=== PATIENT | male | born 1945 | race African-American/Black ===

== ENCOUNTER 2018-08-24 10:02 | Inpatient (IN) ==
--- NOTE | 2018-08-24 10:52 | XR ---
EXAM DATE: 08/24/2018 10:48 AM EST AGE/SEX: 73 years / Male INDICATIONS: Patient presents with weakness and shortness of breath. CLINICAL DATA: This is the patient's initial encounter. Patient reports that signs and symptoms have been present for 3 days and indicates a pain score of 3/10. MEDICAL/SURGICAL HISTORY: . Hypertension. Hypothyroidism. Benign prostatic hyperplasia, (BPH) Diabetes. Hyperlipidemia. Pneumonia. . COMPARISON: [facility], CHEST SINGLE AP, 07/29/2015. . FINDINGS: A single AP view of the chest demonstrates the lungs to be symmetrically aerated without evidence of mass, infiltrate or effusion. Mild elevation left hemidiaphragm. The cardiomediastinal contours are unremarkable. Osseous structures are intact. CONCLUSION: No focal or acute pulmonary infiltrates. No significant changes compared to the prior study. Electronically signed by: Real Mccallum MD 08/24/2018 10:51 AM EST
[2018-08-24 11:00] LABS: Baso % (Auto) 0.4 % (0.0-2.0); Eos # (Auto) 0.1 th/mm3 (0.0-0.4); Eos % (Auto) 2.7 % (0.0-4.0); Hematocrit 46.3 % (39.0-51.0); Lymph # (Auto) 1.5 th/mm3 (1.0-4.8); Lymph % (Auto) 33.9 % (9.0-44.0); Mean Corpuscular HGB Conc 32.3 % (32.0-36.0); Mean Corpuscular Hemoglobin 27.3 pg (27.0-34.0); Mean Corpuscular Volume 84.6 fL (80.0-100.0); Mean Platelet Volume 7.4 fL (7.0-11.0); Mono # (Auto) 0.5 th/mm3 (0.0-0.9); Mono % (Auto) 11.1 % (0.0-8.0); Neut # (Auto) 2.4 th/mm3 (1.8-7.7); Neut % (Auto) 51.9 % (16.0-70.0); Platelet Count 181 th/mm3 (150-450); Red Blood Count 5.48 mil/mm3 (4.50-5.90); Red Cell Distribution Width 17.3 % (11.6-17.2); White Blood Count 4.6 th/mm3 (4.0-11.0)
[2018-08-24 11:01] LABS: Bilirubin,Urine Negative (Negative); Clarity,Urine Clear (Clear); Color,Urine Yellow (Yellw/Straw); Glucose,Urine (UA) Negative (Negative); Leukocyte Esterase,Urine Negative (Negative); Mucus,Urine Few /lpf (Occasional); Nitrite,Urine Negative (Negative); Specific Gravity,Urine 1.009 (1.002-1.035)
[2018-08-24 11:19] LABS: Albumin 3.5 g/dL (3.4-5.0); Anion Gap 5 meq/L (5-15); Aspartate Aminotransferase 24 U/L (15-37); Blood Urea Nitrogen 15 mg/dL (7-18); Calcium 8.7 mg/dL (8.5-10.1); Carbon Dioxide 33.2 meq/L (21.0-32.0); Chloride 101 meq/L (98-107); Glomerular Filtration Rate 51 mL/min (>89); Glucose,Random 110 mg/dL (74-106); Potassium 3.4 meq/L (3.5-5.1); Sodium 139 meq/L (136-145)
[2018-08-24 11:20] LABS: Alanine Aminotransferase 42 U/L (12-78)
[2018-08-24 11:23] LABS: Alkaline Phosphatase 41 U/L (45-117); Total Protein 7.6 g/dL (6.4-8.2)
--- NOTE | 2018-08-24 11:28 | ED ---
HPI General Chief Complaint: Dizziness Stated Complaint: weakness Time Seen by Provider: 08/24/18 10:27 Source: patient Mode of arrival: ambulatory Limitations: no limitations History of Present Illness MD complaint: Reports dizziness Onset (ago): day(s) (1. He states that his symptoms were mild yesterday. They are acutely worse today.) Timing: gradual onset Description: Reports lightheadedness History of similar episodes: No History of trauma: No Severity: mild Relieving factors: nothing Exacerbating factors: other (Standing) Associated symptoms: Reports denies other symptoms; Denies chest pain, fever, chills and shortness of breath Related Data Home Medications Medication Instructions Recorded Confirmed amlodipine 10 mg PO DAILY 08/24/18 08/24/18 atorvastatin 20 mg PO DAILY 08/24/18 08/24/18 calcium carbonate-vit D3-min 1 tab PO DAILY 08/24/18 08/24/18 [Calcium 600 + Minerals] clonidine HCl 0.05 mg PO QID 08/24/18 08/24/18 glipizide 2.5 mg PO DAILY 08/24/18 08/24/18 levothyroxine 150 mcg PO DAILY 08/24/18 08/24/18 losartan 100 mg PO DAILY 08/24/18 08/24/18 metoprolol tartrate 100 mg PO BID 08/24/18 08/24/18 multivitamin [Multiple Vitamins] 1 tab PO DAILY 08/24/18 08/24/18 potassium chloride 20 meq PO TID 08/24/18 08/24/18 Allergies Allergy/AdvReac Type Severity Reaction Status Date / Time No Known Allergies Allergy Verified 08/24/18 10:06 Review of Systems ROS: all other systems reviewed are negative [facility] Medical History Medical History Diabetes (Acute) High cholesterol (Acute) Hypertension (Acute) Thyroid cancer (Acute) Surgical History Surgical History History of thyroid surgery (Acute) Social History Social History Substance History: No History of Abuse Second Hand Smoke Exposure: No Smoking Status: Former smoker Tobacco Type: Cigarettes How Often Do You Have a Drink Containing Alcohol: Never Recent Travel in [facility] within the Last 8 Weeks: No Recent Out of Country Travel within the Last 8 Weeks: No Immunization History Tetanus Immunization: >5 Years Exam Const General: cooperative, healthy appearing, comfortable, no acute distress and well developed Orientation: alert, awake and oriented x3 HENMD Head: normal to inspection, normocephalic and atraumatic Eyes Alignment and Position: alignment normal and position abnormal Conjunctivae: conjunctivae normal Sclera: sclerae normal EOM: EOM intact bilaterally Neck Neck: normal visual inspection and full ROM Chest Chest: normal inspection of the chest Resp Effort & Inspection: normal respiratory effort and able to speak in complete sentences Auscultation: clear to auscultation bilaterally Cardio Rate: regular rate Rhythm: regular rhythm GI Inspection: normal to inspection Palpation: soft Back/Spine/Pelvis Cervical Spine: cervical ROM normal Thoracic/Lumbar Spine: thoraco-lumbar ROM normal Skin General: no rashes or lesions noted, turgor normal and dry skin Neuro General: alert, awake, oriented x3, moves all extremities and CN's II-XI intact bilaterally Extrem General: normal to inspection and full ROM Psych Appearance: grossly normal Mental Status: mental status grossly normal Speech and Movement: speech and movement normal Mood: congruent mood Affect: normal affect Attitude: cooperative Thought Process: normal Thought Content: normal Judgment: judgment good Course Consultations Consultation #1: Dr. Rosales will place in OBS for further eval Time: 12:53 Initial Documented Vital Signs Temperature 98.4 F 08/24/18 10:04 Pulse Rate 73 08/24/18 10:04 Respiratory Rate 18 08/24/18 10:04 Blood Pressure 196/89 H 08/24/18 10:04 Pulse Oximetry 90 L 08/24/18 10:04 Last Documented Vital Signs Temperature 98.6 F 08/24/18 11:54 Pulse Rate 98 H 08/24/18 11:54 Respiratory Rate 20 08/24/18 11:54 Blood Pressure 136/94 H 08/24/18 11:54 Pulse Oximetry 95 08/24/18 11:54 Medical Decision Making [facility] Narrative Medical decision making narrative: This patient presented with a chief complaint of weakness. He states that he started feeling poorly last night and was acutely worse today. He has a pulse oximeter at home for a reason which is unknown to me. He states that his oxygen level was in the 80s last night. He states that his oxygen level is usually in the 90s. He states that he has no history of COPD, asthma, pulmonary fibrosis, CHF. No obvious etiology for his symptoms has been found. I have ordered a CT for PE which is currently pending. Medical Screen Exam Complete: Yes Emergency Medical Condition: Yes Differential Diagnosis Differential Diagnosis: Differential diagnosis of weakness includes but is not limited to infection, CVA, electrolyte disturbance, renal failure, hypoglycemia Lab Data Lab results reviewed: Yes I reviewed the patient's lab results. Result diagrams: 08/24/18 10:30 08/24/18 10:30 Lab Results 08/24/18 08/24/18 08/24/18 Range/Units 10:30 10:30 10:45 WBC 4.6 (4.0-11.0) th/mm3 RBC 5.48 (4.50-5.90) mil/mm3 Hgb 15.0 (13.0-17.0) gm/dL Hct 46.3 (39.0-51.0) % MCV 84.6 (80.0-100.0) fL MCH 27.3 (27.0-34.0) pg MCHC 32.3 (32.0-36.0) % RDW 17.3 H (11.6-17.2) % Plt Count 181 (150-450) th/mm3 MPV 7.4 (7.0-11.0) fL Neut % (Auto) 51.9 (16.0-70.0) % Lymph % (Auto) 33.9 (9.0-44.0) % [place]arton % (Auto) 11.1 H (0.0-8.0) % Eos % (Auto) 2.7 (0.0-4.0) % Baso % (Auto) 0.4 (0.0-2.0) % Neut # (Auto) 2.4 (1.8-7.7) th/mm3 Lymph # (Auto) 1.5 (1.0-4.8) th/mm3 Wharton # (Auto) 0.5 (0.0-0.9) th/mm3 Eos # (Auto) 0.1 (0.0-0.4) th/mm3 Baso # (Auto) 0.0 (0.0-0.2) th/mm3 WBC Differential . Differential Comment Auto diff final Sodium 139 (136-145) meq/L Potassium 3.4 L (3.5-5.1) meq/L Chloride 101 (98-107) meq/L Carbon Dioxide 33.2 H (21.0-32.0) meq/L Anion Gap 5 (5-15) meq/L BUN 15 (7-18) mg/dL Creatinine 1.62 H (0.60-1.30) mg/dL Estimated GFR 51 L (>89) mL/min Random Glucose 110 H (74-106) mg/dL Calcium 8.7 (8.5-10.1) mg/dL Total Bilirubin 0.7 (0.2-1.0) mg/dL AST 24 (15-37) U/L ALT 42 (12-78) U/L Alkaline Phosphatase 41 L (45-117) U/L Troponin I Less than 0.02 L (0.02-0.05) ng/mL Total Protein 7.6 (6.4-8.2) g/dL Albumin 3.5 (3.4-5.0) g/dL Urine Color Yellow (Yellw/Straw) Urine Clarity Clear (Clear) Urine pH 7.0 (5.0-8.5) Ur Specific [place] 1.009 (1.002-1.035) Urine Protein 30 H (Neg-Trace) mg/dL Urine Glucose (UA) Negative (Negative) mg/dL Urine Ketones Negative (Negative) mg/dL Urine Occult Blood Negative (Negative) Urine Nitrate Negative (Negative) Urine Bilirubin Negative (Negative) Urine Urobilinogen Less than 2 (Less than 2) mg/dL Ur Leukocyte Esterase Negative (Negative) Urine WBC 1 (0-5) /hpf Urine Mucus Few H (Occasional) /lpf Micro UA Comment Culture not ind Ur Microscopic Review Not Reportable Urine Culture Comments Culture not ind Imaging Data Attestation: I personally reviewed and interpreted this imaging study as follows : Radiologist's impression: Chest X-Ray 08/24/18 10:31 CONCLUSION: No focal or acute pulmonary infiltrates. No significant changes compared to the prior study. ECG Data EKG Prior to Arrival: No Attestation: I personally reviewed and interpreted this ECG as follows: Discharge Plan Discharge Disposition Patient Disposition: 30 Still Patient Discharge Details Diagnosis: Hypoxia, Weakness Physicians Team ED Provider: Janine Nicholson Primary Care Provider: Jesus Jolly Rxs /Orders / Referrals /Forms Prescriptions: No Action multivitamin [Multiple Vitamins] Tablet 1 tab PO DAILY RF: 0 clonidine HCl 0.1 mg Tablet 0.05 mg PO QID RF: 0 atorvastatin 20 mg Tablet 20 mg PO DAILY RF: 0 metoprolol tartrate 100 mg Tablet 100 mg PO BID RF: 0 amlodipine 10 mg Tablet 10 mg PO DAILY RF: 0 levothyroxine 150 mcg Tablet 150 mcg PO DAILY RF: 0 losartan 100 mg Tablet 100 mg PO DAILY RF: 0 glipizide 5 mg Tablet 2.5 mg PO DAILY RF: 0 calcium carbonate-vit D3-min [Calcium 600 + Minerals] 600 mg calcium- 400 unit Tablet 1 tab PO DAILY RF: 0 potassium chloride 20 mEq Tablet Extended Release 20 meq PO TID RF: 0 Status ED Status: With Doctor
[2018-08-24] MEDS ORDERED: Bisacodyl 10 MG Supp RECTAL PRN (12:58)
[2018-08-24] MEDS ORDERED: Dextrose 50% in Water 50 ML Vial IV.PUSH PRN (12:58)
[2018-08-24] MEDS ORDERED: Acetaminophen 325 MG Tablet PO PRN (12:58)
--- NOTE | 2018-08-24 12:58 | P.HPIM ---
History of Present Illness Primary Care Physician: Jesus Jolly MD History of Present Illness: 73 year old AA male with history of DM, HTN, HLD, HLD, and BPH presenting to the ER for evaluation of weakness and dizziness starting this morning. He reports when he got out of bed he felt very weak but was able to ambulate. He states his arms and legs felt like there was "no circulation" and finds it somewhat hard to describe. He denies paresthesias, unilateral weakness, falls, gait instability, slurred speech, or altered mental status. He describes his dizziness as more of being "weak and lightheaded." He denies sensation of the room spinning. He denies passing out, chest pain, shortness of breath, palpitations, diaphoresis, nausea, or vomiting. He denies recent illness, fever , chills, abdominal pain, dysuria, lower extremity edema, headache, or visual changes. He states at baseline he doesn't have a lot of energy to begin with but he makes himself go on walks at least three times a week. He states that oftentimes when he gets up from laying or sitting down he has to wait a little bit before ambulating because he feels lightheaded and dizzy. His PCP is Dr. Morillo. He also follows with Dr. Arenas for his CKD. Regarding his O2 sat of 90 % on room air, he denies tobacco use for at least 20 years. He denies cough, shortness of breath, or wheezing. His states he doesn't snore or wake up gasping for air. He endorses daytime fatigue but denies headaches. 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) Surgical Hx: tonsillectomy, thyroidectomy, TURP Family Hx: denies family history of CAD Social Hx: lives with his , quit smoking >20 years ago, denies EtOH/illicit drugs - Diagnosis (1) Hypoxia (2) Weakness PMFSH - History History Provided By: Patient - Medical History Medical History: Medical History (Last Reviewed 08/24/18 @ 11:26 by Janine Nicholson) Diabetes High cholesterol Hypertension Thyroid cancer - Surgical History Surgical History: Surgical History (Last Updated 08/24/18 @ 10:14 by Marlene Elizalde) History of thyroid surgery - Family History Family History: Family History (Last Updated 08/24/18 @ 13:35 by Ericka Rosales MD) Other No pertinent family history - Tobacco History Second Hand Smoke Exposure: No Tobacco Use In Past 30 Days: No Smoking Status: Former smoker Tobacco Type: Cigarettes - Alcohol History How Often Do You Have a Drink Containing Alcohol: Never - Substance Use History Substance History: No History of Abuse - Travel History Recent Travel in the [place] Within the Last 8 Weeks: No Recent Travel Out of the Country Within the Last 8 Weeks: No - Immunization History Tetanus Immunization: >5 Years Medications and Allergies Active Medications: Active Medications Sodium Chloride (Ns Flush) 2 ml IV.FLUSH PRN PRN PRN Reason: FLUSH AFTER USING IV ACCESS Last Admin: 08/24/18 10:45 Dose: 2 ml Allergies Allergy/AdvReac Type Severity Reaction Status Date / Time No Known Allergies Allergy Verified 08/24/18 10:06 Home Medications Medication Instructions Recorded Confirmed Type amlodipine 10 mg PO DAILY 08/24/18 08/24/18 History atorvastatin 20 mg PO DAILY 08/24/18 08/24/18 History calcium carbonate-vit D3-min 1 tab PO DAILY 08/24/18 08/24/18 History [Calcium 600 + Minerals] clonidine HCl 0.05 mg PO QID 08/24/18 08/24/18 History glipizide 2.5 mg PO DAILY 08/24/18 08/24/18 History levothyroxine 150 mcg PO DAILY 08/24/18 08/24/18 History losartan 100 mg PO DAILY 08/24/18 08/24/18 History metoprolol tartrate 100 mg PO BID 08/24/18 08/24/18 History multivitamin [Multiple Vitamins] 1 tab PO DAILY 08/24/18 08/24/18 History potassium chloride 20 meq PO TID 08/24/18 08/24/18 History Exam Vital signs: Vital Signs 08/24/18 10:04 08/24/18 10:31 08/24/18 10:51 Temperature 98.4 F 98.3 F Pulse Rate 73 108 H 64 Respiratory Rate 18 18 Blood Pressure 196/89 H 134/73 Pulse Oximetry 90 L 98 100 08/24/18 11:54 Temperature 98.6 F Pulse Rate 98 H Respiratory Rate 20 Blood Pressure 136/94 H Pulse Oximetry 95 Intake & Output 11/30/18 12/01/18 12/01/18 18:59 06:59 18:59 Weight 90.718 kg Narrative: GENERAL: WN, WD AA male sitting up comfortably in bed in NAD. SKIN: Warm and dry. Acanthosis nigricans. HEENT: AT/NC. PERRLA. EOMI. MMM. NECK: Supple no tender LAD or JVD. HEART: RRR no m/r/g. LUNGS: Somewhat distant breath sounds but otherwise CTAB without wheezes or crackles. ABDOMEN: +BS, soft, NT, ND. EXTREMITIES: No LE edema. 2+ pedal pulses. NEURO: Awake and alert. CN II-XII intact. Strength 5/5 bilaterally. No facial droop or lid lag. PSYCH: Appropriate mood and affect. Results - Labs CBC & Chem 7: 08/24/18 10:30 08/24/18 10:30 Labs: Short CBC 08/24/18 Range/Units 10:30 WBC 4.6 (4.0-11.0) th/mm3 Hgb 15.0 (13.0-17.0) gm/dL Hct 46.3 (39.0-51.0) % Plt Count 181 (150-450) th/mm3 BMP 08/24/18 10:30 Sodium 139 Potassium 3.4 L Chloride 101 Carbon Dioxide 33.2 H BUN 15 Creatinine 1.62 H Calcium 8.7 Cardiac Enzymes 08/24/18 Range/Units 10:30 Troponin I Less than 0.02 L (0.02-0.05) ng/mL Liver Function 08/24/18 Range/Units 10:30 Total Bilirubin 0.7 (0.2-1.0) mg/dL AST 24 (15-37) U/L ALT 42 (12-78) U/L Alkaline Phosphatase 41 L (45-117) U/L Albumin 3.5 (3.4-5.0) g/dL Urine 08/24/18 Range/Units 10:45 Urine Color Yellow (Yellw/Straw) Urine Clarity Clear (Clear) Urine pH 7.0 (5.0-8.5) Ur Specific [place] 1.009 (1.002-1.035) Urine Protein 30 H (Neg-Trace) mg/dL Urine Glucose (UA) Negative (Negative) mg/dL - Imaging Impressions Chest X-Ray 08/24/18 10:31 CONCLUSION: No focal or acute pulmonary infiltrates. No significant changes compared to the prior study. Caprini VTE Risk Assessment Caprini VTE Risk Assessment: Moderate/High Risk (score >= 2) Caprini Risk Assessment Model: Point Value = 1 Point Value = 2 Point Value = 3 Point Value = 5 Age 41-60 Minor surgery BMI > 25 kg/m2 Swollen legs Varicose veins or History of unexplained or recurrent spontaneous Oral contraceptives or hormone replacement Sepsis (< 1 month) Serious lung disease, including pneumonia (< 1 month) Abnormal pulmonary function Acute myocardial infarction Congestive heart failure (< 1 month) History of inflammatory bowel disease Medical patient at bed rest Age 61-74 Arthroscopic surgery Major open surgery (> 45 min) Laparoscopic surgery (> 45 min) Malignancy Confined to bed (> 72 hours) Immobilizing plaster cast Central venous access Age >= 75 History of VTE Family history of VTE Factor V Leiden Prothrombin 35264A Lupus anticoagulant Anticardiolipin antibodies Elevated serum homocysteine Heparin-induced thrombocytopenia Other congenital or acquired thrombophilia Stroke (< 1 month) Elective arthroplasty Hip, pelvis, or leg fracture Acute spinal cord injury (< 1 month) Prophylaxis Regimen: Total Risk Factor Score Risk Level Prophylaxis Regimen 0-1 Low Early ambulation 2 Moderate Order ONE of the following: *Sequential Compression Device (SCD) *Heparin 5000 units SQ BID 3-4 Higher Order ONE of the following medications: *Heparin 5000 units SQ TID *Enoxaparin/Lovenox 40 mg SQ daily (WT < 150 kg, CrCl > 30 mL/min) *Enoxaparin/Lovenox 30 mg SQ daily (WT < 150 kg, CrCl > 10-29 mL/min) *Enoxaparin/Lovenox 30 mg SQ BID (WT < 150 kg, CrCl > 30 mL/min) AND/OR *Sequential Compression Device (SCD) 5 or more Highest Order ONE of the following medications: *Heparin 5000 units SQ TID (Preferred with Epidurals) *Enoxaparin/Lovenox 40 mg SQ daily (WT < 150 kg, CrCl > 30 mL/min) *Enoxaparin/Lovenox 30 mg SQ daily (WT < 150 kg, CrCl > 10-29 mL/min) *Enoxaparin/Lovenox 30 mg SQ BID (WT < 150 kg, CrCl > 30 mL/min) AND *Sequential Compression Device (SCD) Assessment and Plan - Assessment (1) Hypoxia Code(s): R09.02 - Hypoxemia Status: Acute (2) Weakness Code(s): R53.1 - Weakness Status: Acute - Plan 73 year old male with DM, HTN, history of thyroid cancer s/p ablation, and HLD presenting with weakness found to have mild hypoxia. 1. Hypoxia - O2 sat 90% on room air - Pt not an active smoker (quit >20 years ago) and has no h/o respiratory disease - Exam with no wheezing or crackles - CXR with normal cardiac contour and clear lung puente, personally reviewed - CBC with Hb 15.0 which may be compensatory if chronically hypoxic - EKG showing 1st degree AV block - Because he has coronary risk factors (DM, HTN, HLD, and history of tobacco), will rule out with serial enzymes and EKGs - Obtain 2D echo to assess for pulmonary HTN or structural heart abnormalities - CTA chest pending (ordered by ED) - Obtain ABG given CO2 elevated on chemistry - Respiratory walk test - May benefit from outpatient sleep study 2. 1st degree AV block - Hold home metoprolol - Checking serial EKGs - Monitor on telemetry - Avoid AV liberty blocking agents 3. Weakness - Pt with multiple comorbidities and on several antihypertensives that can cause weakness/fatigue - Holding home metoprolol in light of AV block as above - Check TSH - Potassium mildly low, on supplementation - Consult PT to eval and treat 4. Dizziness - Does not sound like vertigo since no sensation of room spinning and not positional - Clinically sounds more like orthostatics given he has symptoms when he rises - Obtain orthostatic vital signs 5. Hypokalemia - Potassium mildly low at 3.4 - Continue home supplementation - Monitor 6. DM - Hold home glipizide - SSI with Accu-Cheks per protocol 7. HTN - Holding home metoprolol for 1st degree AV block - Continue home Losartan, clonidine - Hydralazine PRN 8. HLD - Continue home statin 9. CKD, stage 3a - At baseline - Follows with nephrology as outpatient - Avoid nephrotoxins - Monitor renal function 10. Hypothyroidism, post-ablation - Continue home levothyroxine DVT prophylaxis: heparin Code Status: FULL Discussed Condition With: Patient, family, and ER physician Discharge Planning: Anticipate D/C tomorrow if remains clinically stable and work-up not warranting further acute care
[2018-08-24] MEDS ORDERED: cloNIDine Susp (NICU) 20 MCG/ML 30 ML Bottle PO SCH (13:00)
[2018-08-24 13:46] LABS: ABG PCO2 50 mmHg (38-42); ABG PO2 98 mmHg (61-120)
[2018-08-24] MEDS ORDERED: hydrALAZINE 25 MG Tablet PO PRN (13:47)
--- NOTE | 2018-08-24 14:11 | CT ---
EXAM DATE: 08/24/2018 2:03 PM EST AGE/SEX: 73 years / Male INDICATIONS: Dizziness today. CLINICAL DATA: This is the patient's initial encounter. Patient reports that signs and symptoms have been present for 1 day and indicates a pain score of 0/10. MEDICAL/SURGICAL HISTORY: Diabetes. Carcinoma, thyroid. Hypertension. . thyroid surgery RADIATION DOSE: 10.85 CTDI (mGy) COMPARISON: [facility], MRI CHEST W/O CONTRAST, 07/31/2015. . TECHNIQUE: Volumetric scanning was performed using a multi-row detector CT scanner during bolus infu kiersten of 70 ml Omnipaque 350 (iohexol) nonionic water-soluble contrast as a single exam dose. The lilliana a was post processed with a variety of visualization algorithms including full volume maximum intensi ty projection and sliding thin slab reformation. Using automated exposure control and adjustment of t he mA and/or kV according to patient size, radiation dose was kept as low as reasonably achievable to obtain optimal diagnostic quality images. DICOM format image data is available electronically for r eview and comparison. FINDINGS: Pulmonary Arteries: No filling defects are seen in the pulmonary arteries out to the subsegmental ve ssels. The left and right pulmonary arteries are normal in diameter. Lung: Scattered posterior bibasilar atelectasis and/or minimal infiltrates are noted. Effusion: None. Mediastinum: No evidence of mediastinal or hilar adenopathy. Tiny pericardial effusion is noted. Car diomegaly is noted. Coronary artery calcifications are noted. Other: The axilla is unremarkable. Scattered low-density lesions are noted throughout the liver whic h are indeterminate but can be further evaluated with outpatient imaging on a nonemergent basis if re quested. Degenerative changes and scoliosis of the thoracic spine are noted. CONCLUSION: 1. No evidence of pulmonary embolism. 2. Scattered posterior bibasilar atelectasis and/or minimal infiltrates. 3. Tiny pericardial effusion. 4. Cardiomegaly and coronary artery calcifications. 5. Scattered low-density lesions are noted throughout the liver which are indeterminate but can be f urther evaluated with outpatient imaging on a nonemergent basis if requested. 6. Degenerative changes and scoliosis of the thoracic spine are noted. Electronically signed by: David Ashley MD 08/24/2018 2:10 PM EST
[2018-08-24 15:52] LABS: Vitamin B12 1155 pg/mL (193-986)
[2018-08-24 17:42] LABS: ABG Base Excess 7.2 mmol/L (-2-2); ABG PCO2 48 mmHg (38-42); ABG PO2 195 mmHg (61-120)
--- NOTE | 2018-08-24 17:48 | P.PNADD ---
Addendum to Inpatient Note Reason for Addendum: Additional Documentation Additional information: Tammi called on patient for unresponsiveness. On my assessment, the patient was completely unresponsive to aggressive sternal rub and calling his name. His O2 sat was 57% and he was started on bag mask ventilation. His BP was noted to be 90s/50s with HR in the 60s. After approximately 5 minutes he became awake, alert, and oriented but obviously drowsy. He denied chest pain, palpitations, headache, or shortness of breath. His pupils were equal bilaterally and he could follow commands. Breath sounds were clear bilaterally. Stat 500 cc NS bolus was ordered but patient's pressure went up to 136/77 on its own with sats back in the 90s. A stat BAG was done which showed pH 7.43, PCO2 47.9, PO2 195, HCO3 31.6, base excess 7.2. Stat lactic acid and ammonia levels were ordered as well as a stat CT scan of the head. Critical care was called who agreed with patient transfer to [facility] and consult.
[2018-08-24] MEDS ORDERED: Sodium Chlor 0.9% Inj 500 ML IV.SIG SCH (18:00)
--- NOTE | 2018-08-24 18:15 | CT ---
EXAM DATE: 08/24/2018 6:13 PM EST AGE/SEX: 73 years / Male INDICATIONS: Patients Sats dropped, halicat. CLINICAL DATA: This is the patient's initial encounter. Patient reports that signs and symptoms have been present for 1 day and indicates a pain score of 0/10. MEDICAL/SURGICAL HISTORY: Diabetes. Hypertension. Carcinoma, oral cavity. None. RADIATION DOSE: 49.53 CTDI (mGy) COMPARISON: [facility], CT BRAIN W/O CONTRAST, 07/26/2012. . TECHNIQUE: CT of the head without contrast. Using automated exposure control and adjustment of the mA and/or kV according to patient size, radiation dose was kept as low as reasonably achievable to ob tain optimal diagnostic quality images. DICOM format image data is available electronically for revi ew and comparison. FINDINGS: Cerebrum: Mild diffuse cerebral atrophy. The ventricles are normal for degree of atrophy. No evidenc e of midline shift, mass lesion, hemorrhage or acute infarction. No extraaxial fluid collections are seen. Posterior Fossa: The cerebellum and brainstem are intact. The 4th ventricle is midline. The cerebe llopontine angle is unremarkable. Extracranial: The visualized portion of the orbits is intact. Skull: The calvaria is intact. No evidence of skull fracture. CONCLUSION: 1. No acute intracranial abnormality. . Electronically signed by: Jason Ledesma MD 08/24/2018 6:14 PM EST
[2018-08-24] MEDS: Insulin NovoLOG Aspart Correctional Sugar Inj SQ SCH ×2 (18:25→21:00)
--- NOTE | 2018-08-24 19:04 | P.CONCC ---
History of Present Illness Service: critical care medicine Consult date: 08/24/18 Requesting Physician: Ericka Rosales Reason for Consult: ALTERED MENTAL STATUS Primary Care Provider: Jesus Jolly MD Chief Complaint: Altered mental status History of Present Illness: 73-year-old male with a medical history significant for hypertension, diabetes mellitus, hyperlipidemia, BPH who presented to the ER today with dizziness and weakness which started this morning. He felt lightheaded however denied passing out. Patient did not have any chest pain shortness of breath palpitations nausea vomiting abdominal discomfort melena or rectal bleeding at home. He denied any fevers or chills. Denied any dysuria, hematuria, headache , visual disturbance or focal weakness involving his extremities. Patient was evaluated by hospitalist service and kept under observation. His admitting labs including CBC, BMP were unremarkable. A chest CTA was negative for PE. This evening around 5:30 PM patient was noted to become unresponsive when his nurse went to check on him. He did not respond to sternal rub and his O2 sats dropped to the 70s and was hypotensive as well. He started regaining consciousness in a few minutes. He underwent a head CT which was negative for bleed and he was subsequently transferred to the ICU and critical care consult was requested. By the time he arrived to the ICU his neurologic status was back to baseline and his blood pressure was actually running high. When I evaluated the patient in the ICU he was fully awake and alert and conversant in no acute distress. He denied any chest pain or shortness of breath. Denies any headache nausea vomiting abdominal discomfort. He does not recollect any of the events earlier. The last thing he remembers was watching the game on TV and then when he started gaining consciousness he noticed a lot of people in his room asking him questions. He denies having similar episodes before. He denies any previous neurologic problems of cardiac issues except for hypertension. He does have diabetes mellitus which is relatively well controlled. 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) Surgical Hx: tonsillectomy, thyroidectomy, TURP Family Hx: denies family history of CAD Social Hx: lives with his , quit smoking >20 years ago, denies EtOH/illicit drugs Review of Systems All other systems reviewed negative except as stated in HPI PMFSH - History History Provided By: Patient - Medical History Medical History: Medical History (Last Reviewed 08/24/18 @ 11:26 by Janine Nicholson) Diabetes High cholesterol Hypertension Thyroid cancer - Surgical History Surgical History: Surgical History (Last Updated 08/24/18 @ 10:14 by Marlene Elizalde) History of thyroid surgery - Family History Family History: Family History (Last Updated 08/24/18 @ 13:35 by Ericka Rosales MD) Other No pertinent family history - Tobacco History Second Hand Smoke Exposure: No Tobacco Use In Past 30 Days: No Smoking Status: Former smoker Tobacco Type: Cigarettes - Alcohol History How Often Do You Have a Drink Containing Alcohol: Never - Substance Use History Substance History: No History of Abuse - Travel History Recent Travel in the [place] Within the Last 8 Weeks: No Recent Travel Out of the Country Within the Last 8 Weeks: No - Immunization History Tetanus Immunization: >5 Years Medications and Allergies Active Medications: Active Medications Acetaminophen (Tylenol) 650 mg PO Q4H PRN PRN Reason: Temp > 100.4 Al Hydroxide/Mg Hydroxide (Milk Of Magnesia Liq) 30 ml PO Q12H PRN PRN Reason: Mild Constipation Amlodipine Besylate (Norvasc) 10 mg PO DAILY ERICKA Atorvastatin Calcium (Lipitor) 20 mg PO DAILY ERICKA Bisacodyl (Dulcolax Supp) 10 mg RECTAL DAILY PRN PRN Reason: SEVERE CONSITIPATION Clonidine HCl (Catapres) 0.5 mg PO Q8H [facility] Last Admin: 08/24/18 16:08 Dose: 0.5 mg Dextrose (D50w Vial) 50 ml IV.PUSH UNSCH PRN PRN Reason: PER HYPOGLYCEMIA PROTOCOL Glucagon (Glucagon Inj) 1 mg OTHER PRN PRN PRN Reason: for Hypoglycemia Protocol Heparin Sodium (Porcine) (Heparin Inj) 5,000 units SQ Q12HR ERICKA Hydralazine HCl (Apresoline) 25 mg PO Q8H PRN PRN Reason: SBP>180, DBP>100, HR>65 Hydralazine HCl (Apresoline Inj) 10 mg IV.PUSH Q4H PRN PRN Reason: SBP > 160 Insulin Aspart (Novolog Insulin Correctional Sugar Inj) 0 unit SQ ACHS [facility]; Protocol Last Admin: 08/24/18 18:25 Dose: Not Given Lactulose (Lactulose Liq) 30 ml PO DAILY PRN PRN Reason: SEVERE CONSITIPATION Levothyroxine Sodium (Synthroid) 150 mcg PO DAILY@0600 [facility] Losartan Potassium (Cozaar) 100 mg PO DAILY [facility] Metoprolol Tartrate (Lopressor) 100 mg PO BID [facility] Multivitamins (Theragran) 1 tab PO DAILY [facility] Ondansetron HCl (Zofran Inj) 4 mg IV.PUSH Q6H PRN PRN Reason: NAUSEA OR VOMITING Potassium Chloride (K-Dur) 20 meq PO TID [facility] Last Admin: 08/24/18 18:26 Dose: 20 meq Senna/Docusate Sodium (Mary-Colace) 1 tab PO BID [facility] Sennosides (Senokot) 17.2 mg PO Q12H PRN PRN Reason: Moderate Constipation Sodium Chloride (Ns Flush) 2 ml IV.FLUSH BID [facility] Sodium Chloride (Ns Flush) 2 ml IV.FLUSH PRN PRN PRN Reason: FLUSH AFTER USING IV ACCESS Allergies Allergy/AdvReac Type Severity Reaction Status Date / Time No Known Allergies Allergy Verified 08/24/18 10:06 Home Medications Medication Instructions Recorded Confirmed Type amlodipine 10 mg PO DAILY 08/24/18 08/24/18 History atorvastatin 20 mg PO DAILY 08/24/18 08/24/18 History calcium carbonate-vit D3-min 1 tab PO DAILY 08/24/18 08/24/18 History [Calcium 600 + Minerals] clonidine HCl 0.5 mg PO QID 08/24/18 08/24/18 History glipizide 2.5 mg PO DAILY 08/24/18 08/24/18 History levothyroxine 150 mcg PO DAILY 08/24/18 08/24/18 History losartan 100 mg PO DAILY 08/24/18 08/24/18 History metoprolol tartrate 100 mg PO BID 08/24/18 08/24/18 History multivitamin [Multiple Vitamins] 1 tab PO DAILY 08/24/18 08/24/18 History potassium chloride 20 meq PO TID 08/24/18 08/24/18 History Physical Exam Vital signs: Vital Signs 08/24/18 10:04 08/24/18 10:31 08/24/18 10:51 Temperature 98.4 F 98.3 F Pulse Rate 73 108 H 64 Respiratory Rate 18 18 Blood Pressure 196/89 H 134/73 Pulse Oximetry 90 L 98 100 Pulse Oximetry [Exertion on Room Air] Pulse Oximetry [Exertion with Oxygen] Pulse Oximetry [Resting on Room Air] Pulse Oximetry [Resting with Oxygen] 08/24/18 11:54 08/24/18 12:52 08/24/18 12:58 Temperature 98.6 F 97.8 F 97.9 F Pulse Rate 98 H 64 67 Respiratory Rate 20 17 17 Blood Pressure 136/94 H 154/81 H 154/82 H Pulse Oximetry 95 98 99 Pulse Oximetry [Exertion on Room Air] Pulse Oximetry [Exertion with Oxygen] Pulse Oximetry [Resting on Room Air] Pulse Oximetry [Resting with Oxygen] 08/24/18 13:25 08/24/18 13:27 08/24/18 15:35 Temperature Pulse Rate 65 Respiratory Rate Blood Pressure Pulse Oximetry 98 Pulse Oximetry [Exertion on Room Air] 97 Pulse Oximetry [Exertion with Oxygen] 95 Pulse Oximetry [Resting on Room Air] 99 Pulse Oximetry [Resting with Oxygen] 99 08/24/18 15:50 08/24/18 18:00 Temperature 98.1 F 97.5 F L Pulse Rate 74 61 Respiratory Rate 16 20 Blood Pressure 190/92 H 188/78 H Pulse Oximetry 95 98 Pulse Oximetry [Exertion on Room Air] Pulse Oximetry [Exertion with Oxygen] Pulse Oximetry [Resting on Room Air] Pulse Oximetry [Resting with Oxygen] Intake & Output 08/23/18 08/24/18 08/24/18 18:59 06:59 18:59 Weight 90.71 kg Other: Weight On Admission 90.718 kg Narrative: HEENT/Neuro: No pallor or icterus, tongue moist, MARVIN, Awake alert oriented 3 , nonfocal grossly, moving all 4 extremities with good power bilaterally Neck: No JVD Chest/pulmonary: CTA bilaterally Cardiovascular: S1-S2 regular no gallop or murmur GI/abdomen: Soft, nontender, bowel sounds present Extremities: Warm bilaterally, no edema Assessment and Plan - Assessment and Plan Plan: 73-year-old male with: Altered mental status/syncope Transient hypotension which is now resolved Hypertension Diabetes mellitus Plan: Neuro: Follow neuro checks. Head CT negative for bleed. Will obtain EEG. MRI brain for further evaluation in a.m. Consult neurology for further evaluation of altered mental status. Cardiovascular: Continue telemetry. Lopressor on hold as patient was transiently bradycardic with heart rate in the 60s earlier. Will use hydralazine as needed to keep SBP below 160 mmHg overnight and then resume p.o. antihypertensives in a.m. if no further hypotension. check 2D echo. Consult cardiology. Pulmonary: Continue nasal cannula O2. Bronchodilators as needed. GI/liver: P.o. diet as tolerated. Endocrine: SSI for glycemic control as needed Heme: Follow CBC and coags. Prophylaxis: SCDs. Heparin subcutaneously Patient will be transferred back to hospitalist service in a.m. as he is currently back to his baseline. Will need further neurologic and cardiovascular workup for further evaluation of syncope.
[2018-08-24] MEDS: Heparin - SQ 10,000 UNITS/ML Vial SQ SCH (20:50)
[2018-08-24] MEDS: Senna/Docusate Sodium 8.6/50 MG Tablet PO SCH (20:51)
[2018-08-24] MEDS ORDERED: Metoprolol Tartrate 100 MG Tablet PO SCH (21:00)
[2018-08-25 05:22] LABS: Baso % (Auto) 0.4 % (0.0-2.0); Eos # (Auto) 0.1 th/mm3 (0.0-0.4); Eos % (Auto) 2.5 % (0.0-4.0); Hematocrit 43.3 % (39.0-51.0); Hemoglobin 14.3 gm/dL (13.0-17.0); Lymph # (Auto) 1.4 th/mm3 (1.0-4.8); Lymph % (Auto) 29.1 % (9.0-44.0); Mean Corpuscular HGB Conc 33.1 % (32.0-36.0); Mean Corpuscular Hemoglobin 27.7 pg (27.0-34.0); Mean Corpuscular Volume 83.8 fL (80.0-100.0); Mean Platelet Volume 7.8 fL (7.0-11.0); Mono # (Auto) 0.6 th/mm3 (0.0-0.9); Mono % (Auto) 13.2 % (0.0-8.0); Neut # (Auto) 2.6 th/mm3 (1.8-7.7); Neut % (Auto) 54.8 % (16.0-70.0); Platelet Count 166 th/mm3 (150-450); Red Blood Count 5.17 mil/mm3 (4.50-5.90); Red Cell Distribution Width 17.5 % (11.6-17.2); White Blood Count 4.8 th/mm3 (4.0-11.0)
[2018-08-25 05:34] LABS: Calcium 7.8 mg/dL (8.5-10.1); Carbon Dioxide 35.1 meq/L (21.0-32.0); Potassium 3.3 meq/L (3.5-5.1)
[2018-08-25] MEDS: Levothyroxine 150 MCG Tablet PO SCH (05:49)
[2018-08-25] MEDS: Senna/Docusate Sodium 8.6/50 MG Tablet PO SCH ×2 (08:27→20:26)
[2018-08-25] MEDS: amLODIPine 10 MG Tablet PO SCH (08:28)
[2018-08-25] MEDS: Heparin - SQ 10,000 UNITS/ML Vial SQ SCH ×2 (08:28→20:25)
--- NOTE | 2018-08-25 08:36 | P.PN ---
Subjective Interval history: Consulted by critical care medicine for transfer care medical management. Chart reviewed. Transferred to ICU secondary to syncope with transient hypoxia and hypotension. At this time patient has no complaints. Seen with daughter no new medications. Patient was not on telemetry when he had syncope. Discussed with cardiology Physical Exam Vital signs: Vital Signs 08/24/18 10:04 08/24/18 10:31 08/24/18 10:51 Temperature 98.4 F 98.3 F Pulse Rate 73 108 H 64 Respiratory Rate 18 18 Blood Pressure 196/89 H 134/73 Pulse Oximetry 90 L 98 100 Pulse Oximetry [Exertion on Room Air] Pulse Oximetry [Exertion with Oxygen] Pulse Oximetry [Resting on Room Air] Pulse Oximetry [Resting with Oxygen] 08/24/18 11:54 08/24/18 12:52 08/24/18 12:58 Temperature 98.6 F 97.8 F 97.9 F Pulse Rate 98 H 64 67 Respiratory Rate 20 17 17 Blood Pressure 136/94 H 154/81 H 154/82 H Pulse Oximetry 95 98 99 Pulse Oximetry [Exertion on Room Air] Pulse Oximetry [Exertion with Oxygen] Pulse Oximetry [Resting on Room Air] Pulse Oximetry [Resting with Oxygen] 08/24/18 13:25 08/24/18 13:27 08/24/18 15:35 Temperature Pulse Rate 65 Respiratory Rate Blood Pressure Pulse Oximetry 98 Pulse Oximetry [Exertion on Room Air] 97 Pulse Oximetry [Exertion with Oxygen] 95 Pulse Oximetry [Resting on Room Air] 99 Pulse Oximetry [Resting with Oxygen] 99 08/24/18 15:50 08/24/18 18:00 08/24/18 19:00 Temperature 98.1 F 97.5 F L Pulse Rate 74 61 61 Respiratory Rate 16 20 Blood Pressure 190/92 H 188/78 H Pulse Oximetry 95 98 95 Pulse Oximetry [Exertion on Room Air] Pulse Oximetry [Exertion with Oxygen] Pulse Oximetry [Resting on Room Air] Pulse Oximetry [Resting with Oxygen] 08/24/18 19:08 08/24/18 19:38 08/24/18 19:55 Temperature Pulse Rate 64 64 Respiratory Rate Blood Pressure 145/80 H 145/80 H Pulse Oximetry 95 94 L Pulse Oximetry [Exertion on Room Air] Pulse Oximetry [Exertion with Oxygen] Pulse Oximetry [Resting on Room Air] Pulse Oximetry [Resting with Oxygen] 08/24/18 20:00 08/24/18 20:08 08/24/18 20:38 Temperature 97.7 F Pulse Rate 62 60 59 L Respiratory Rate Blood Pressure 169/81 H 159/78 H Pulse Oximetry 94 L 94 L 94 L Pulse Oximetry [Exertion on Room Air] Pulse Oximetry [Exertion with Oxygen] Pulse Oximetry [Resting on Room Air] Pulse Oximetry [Resting with Oxygen] 08/24/18 21:00 08/24/18 21:08 08/24/18 21:38 Temperature Pulse Rate 60 59 L 55 L Respiratory Rate Blood Pressure 170/80 H 145/79 H Pulse Oximetry 94 L 96 96 Pulse Oximetry [Exertion on Room Air] Pulse Oximetry [Exertion with Oxygen] Pulse Oximetry [Resting on Room Air] Pulse Oximetry [Resting with Oxygen] 08/24/18 22:00 08/24/18 22:08 08/24/18 22:38 Temperature Pulse Rate 55 L 57 L Respiratory Rate Blood Pressure 137/74 129/79 Pulse Oximetry 95 95 96 Pulse Oximetry [Exertion on Room Air] Pulse Oximetry [Exertion with Oxygen] Pulse Oximetry [Resting on Room Air] Pulse Oximetry [Resting with Oxygen] 08/24/18 23:00 08/25/18 00:00 08/25/18 00:38 Temperature 97.7 F Pulse Rate 57 L 56 L 57 L Respiratory Rate 16 Blood Pressure 131/73 153/77 H Pulse Oximetry 95 96 97 Pulse Oximetry [Exertion on Room Air] Pulse Oximetry [Exertion with Oxygen] Pulse Oximetry [Resting on Room Air] Pulse Oximetry [Resting with Oxygen] 08/25/18 01:00 08/25/18 01:38 08/25/18 02:00 Temperature Pulse Rate 56 L 61 61 Respiratory Rate Blood Pressure 153/83 H Pulse Oximetry 98 97 97 Pulse Oximetry [Exertion on Room Air] Pulse Oximetry [Exertion with Oxygen] Pulse Oximetry [Resting on Room Air] Pulse Oximetry [Resting with Oxygen] 08/25/18 02:38 08/25/18 03:00 08/25/18 03:38 Temperature Pulse Rate 59 L 60 65 Respiratory Rate Blood Pressure 160/83 H Pulse Oximetry 98 97 95 Pulse Oximetry [Exertion on Room Air] Pulse Oximetry [Exertion with Oxygen] Pulse Oximetry [Resting on Room Air] Pulse Oximetry [Resting with Oxygen] 08/25/18 04:00 08/25/18 04:38 08/25/18 05:00 Temperature 97.7 F Pulse Rate 61 60 59 L Respiratory Rate Blood Pressure 162/76 H 151/74 H 151/74 H Pulse Oximetry 96 98 97 Pulse Oximetry [Exertion on Room Air] Pulse Oximetry [Exertion with Oxygen] Pulse Oximetry [Resting on Room Air] Pulse Oximetry [Resting with Oxygen] 08/25/18 05:38 08/25/18 06:00 08/25/18 08:05 Temperature Pulse Rate 63 68 Respiratory Rate Blood Pressure 164/83 H Pulse Oximetry 96 95 94 L Pulse Oximetry [Exertion on Room Air] Pulse Oximetry [Exertion with Oxygen] Pulse Oximetry [Resting on Room Air] Pulse Oximetry [Resting with Oxygen] Intake & Output 08/24/18 08/25/18 08/25/18 18:59 06:59 18:59 Intake Total 980 / 980 Balance 980 / 980 Weight 90.71 kg 91.6 kg Intake: IV 500 / 500 NS Inj 500 ML @ 1000 mls/hr IV. 500 / 500 SIG BOLUS ERICKA Rx#:[id number] Oral 480 / 480 Other: Date of Last Bowel Movement 08/23/18 # Bowel Movements 0 Weight On Admission 90.718 kg Narrative: HEENT/Neuro: No pallor or icterus, tongue moist, MARVIN, Awake alert oriented 3 , nonfocal grossly, moving all 4 extremities with good power bilaterally Neck: No JVD Chest/pulmonary: CTA bilaterally Cardiovascular: S1-S2 regular no gallop or murmur GI/abdomen: Soft, nontender, bowel sounds present Extremities: Warm bilaterally, no edema Results - Labs CBC & Chem 7: 08/25/18 03:35 08/25/18 03:35 Laboratory Results - last 24 hr 08/24/18 08/24/18 08/24/18 10:30 10:30 10:45 WBC 4.6 RBC 5.48 Hgb 15.0 Hct 46.3 MCV 84.6 MCH 27.3 MCHC 32.3 RDW 17.3 H Plt Count 181 MPV 7.4 Neut % (Auto) 51.9 Lymph % (Auto) 33.9 Emery % (Auto) 11.1 H Eos % (Auto) 2.7 Baso % (Auto) 0.4 Neut # (Auto) 2.4 Lymph # (Auto) 1.5 Emery # (Auto) 0.5 Eos # (Auto) 0.1 Baso # (Auto) 0.0 WBC Differential . Differential Comment Auto diff final Puncture Site Patient Temperature O2 Saturation ABG pH ABG pCO2 ABG pO2 ABG HCO3 ABG O2 Content ABG Base Excess ABG Methemoglobin Neil Test Hemoglobin Carboxyhemoglobin O2 Delivery Device Liter Flow Inspired O2 Critical Value Sodium 139 Potassium 3.4 L Chloride 101 Carbon Dioxide 33.2 H Anion Gap 5 BUN 15 Creatinine 1.62 H Estimated GFR 51 L POC Glucose Random Glucose 110 H Lactic Acid Calcium 8.7 Total Bilirubin 0.7 AST 24 ALT 42 Alkaline Phosphatase 41 L Ammonia Troponin I Less than 0.02 L B-Natriuretic Peptide Total Protein 7.6 Albumin 3.5 Vitamin B12 TSH Urine Color Yellow Urine Clarity Clear Urine pH 7.0 Ur Specific [place] 1.009 Urine Protein 30 H Urine Glucose (UA) Negative Urine Ketones Negative Urine Occult Blood Negative Urine Nitrate Negative Urine Bilirubin Negative Urine Urobilinogen Less than 2 Ur Leukocyte Esterase Negative Urine WBC 1 Urine Mucus Few H Micro UA Comment Culture not ind Ur Microscopic Review Not Reportable Urine Culture Comments Culture not ind Nasal Screen MRSA (PCR) 08/24/18 08/24/18 08/24/18 13:36 14:36 14:36 WBC RBC Hgb Hct MCV MCH MCHC RDW Plt Count MPV Neut % (Auto) Lymph % (Auto) Emery % (Auto) Eos % (Auto) Baso % (Auto) Neut # (Auto) Lymph # (Auto) Emery # (Auto) Eos # (Auto) Baso # (Auto) WBC Differential Differential Comment Puncture Site Left radial Patient Temperature 98.6 O2 Saturation 96 ABG pH 7.43 H ABG pCO2 50 H ABG pO2 98 ABG HCO3 33 H ABG O2 Content 20.4 H ABG Base Excess 8.0 H ABG Methemoglobin 0.8 Neil Test + Hemoglobin 15.2 Carboxyhemoglobin 1.3 O2 Delivery Device Nasal cannula Liter Flow 3.00 Inspired O2 Critical Value No Sodium Potassium Chloride Carbon Dioxide Anion Gap BUN Creatinine Estimated GFR POC Glucose Random Glucose Lactic Acid Calcium Total Bilirubin AST ALT Alkaline Phosphatase Ammonia Troponin I Less than 0.02 L B-Natriuretic Peptide 85 Total Protein Albumin Vitamin B12 1155 H TSH 1.700 Urine Color Urine Clarity Urine pH Ur Specific [place] Urine Protein Urine Glucose (UA) Urine Ketones Urine Occult Blood Urine Nitrate Urine Bilirubin Urine Urobilinogen Ur Leukocyte Esterase Urine WBC Urine Mucus Micro UA Comment Ur Microscopic Review Urine Culture Comments Nasal Screen MRSA (PCR) 08/24/18 08/24/18 08/24/18 17:00 17:29 17:35 WBC RBC Hgb Hct MCV MCH MCHC RDW Plt Count MPV Neut % (Auto) Lymph % (Auto) Emery % (Auto) Eos % (Auto) Baso % (Auto) Neut # (Auto) Lymph # (Auto) Emery # (Auto) Eos # (Auto) Baso # (Auto) WBC Differential Differential Comment Puncture Site Right radial Patient Temperature 98.6 O2 Saturation 98 ABG pH 7.43 H ABG pCO2 48 H ABG pO2 195 H ABG HCO3 32 H ABG O2 Content 19.9 ABG Base Excess 7.2 H ABG Methemoglobin 0.6 Neil Test Present Hemoglobin 14.3 Carboxyhemoglobin 1.3 O2 Delivery Device Non-rebreathing mask Liter Flow 15.00 Inspired O2 100 Critical Value No Sodium Potassium Chloride Carbon Dioxide Anion Gap BUN Creatinine Estimated GFR POC Glucose 119 H Random Glucose Lactic Acid Calcium Total Bilirubin AST ALT Alkaline Phosphatase Ammonia Troponin I Less than 0.02 L B-Natriuretic Peptide Total Protein Albumin Vitamin B12 TSH Urine Color Urine Clarity Urine pH Ur Specific [place] Urine Protein Urine Glucose (UA) Urine Ketones Urine Occult Blood Urine Nitrate Urine Bilirubin Urine Urobilinogen Ur Leukocyte Esterase Urine WBC Urine Mucus Micro UA Comment Ur Microscopic Review Urine Culture Comments Nasal Screen MRSA (PCR) 08/24/18 08/24/18 08/24/18 18:35 19:10 19:10 WBC RBC Hgb Hct MCV MCH MCHC RDW Plt Count MPV Neut % (Auto) Lymph % (Auto) Emery % (Auto) Eos % (Auto) Baso % (Auto) Neut # (Auto) Lymph # (Auto) Emery # (Auto) Eos # (Auto) Baso # (Auto) WBC Differential Differential Comment Puncture Site Patient Temperature O2 Saturation ABG pH ABG pCO2 ABG pO2 ABG HCO3 ABG O2 Content ABG Base Excess ABG Methemoglobin Neil Test Hemoglobin Carboxyhemoglobin O2 Delivery Device Liter Flow Inspired O2 Critical Value Sodium Potassium Chloride Carbon Dioxide Anion Gap BUN Creatinine Estimated GFR POC Glucose Random Glucose Lactic Acid 1.1 Calcium Total Bilirubin AST ALT Alkaline Phosphatase Ammonia 16 Troponin I B-Natriuretic Peptide Total Protein Albumin Vitamin B12 TSH Urine Color Urine Clarity Urine pH Ur Specific [place] Urine Protein Urine Glucose (UA) Urine Ketones Urine Occult Blood Urine Nitrate Urine Bilirubin Urine Urobilinogen Ur Leukocyte Esterase Urine WBC Urine Mucus Micro UA Comment Ur Microscopic Review Urine Culture Comments Nasal Screen MRSA (PCR) Not detected 08/24/18 08/25/18 08/25/18 20:54 03:35 03:35 WBC 4.8 RBC 5.17 Hgb 14.3 Hct 43.3 MCV 83.8 MCH 27.7 MCHC 33.1 RDW 17.5 H Plt Count 166 MPV 7.8 Neut % (Auto) 54.8 Lymph % (Auto) 29.1 Emery % (Auto) 13.2 H Eos % (Auto) 2.5 Baso % (Auto) 0.4 Neut # (Auto) 2.6 Lymph # (Auto) 1.4 Emery # (Auto) 0.6 Eos # (Auto) 0.1 Baso # (Auto) 0.0 WBC Differential . Differential Comment Auto diff final Puncture Site Patient Temperature O2 Saturation ABG pH ABG pCO2 ABG pO2 ABG HCO3 ABG O2 Content ABG Base Excess ABG Methemoglobin Neil Test Hemoglobin Carboxyhemoglobin O2 Delivery Device Liter Flow Inspired O2 Critical Value Sodium 143 Potassium 3.3 L Chloride 103 Carbon Dioxide 35.1 H Anion Gap 5 BUN 15 Creatinine 1.42 H Estimated GFR 60 L POC Glucose 135 H Random Glucose 94 Lactic Acid Calcium 7.8 L D Total Bilirubin AST ALT Alkaline Phosphatase Ammonia Troponin I B-Natriuretic Peptide Total Protein Albumin Vitamin B12 TSH Urine Color Urine Clarity Urine pH Ur Specific [place] Urine Protein Urine Glucose (UA) Urine Ketones Urine Occult Blood Urine Nitrate Urine Bilirubin Urine Urobilinogen Ur Leukocyte Esterase Urine WBC Urine Mucus Micro UA Comment Ur Microscopic Review Urine Culture Comments Nasal Screen MRSA (PCR) - Imaging Impressions Chest X-Ray 08/24/18 10:31 CONCLUSION: No focal or acute pulmonary infiltrates. No significant changes compared to the prior study. Chest CTA 08/24/18 12:21 CONCLUSION: 1. No evidence of pulmonary embolism. 2. Scattered posterior bibasilar atelectasis and/or minimal infiltrates. 3. Tiny pericardial effusion. 4. Cardiomegaly and coronary artery calcifications. 5. Scattered low-density lesions are noted throughout the liver which are indeterminate but can be further evaluated with outpatient imaging on a nonemergent basis if requested. 6. Degenerative changes and scoliosis of the thoracic spine are noted. Head CT 08/24/18 17:37 CONCLUSION: 1. No acute intracranial abnormality. . - Procedures None Assessment and Plan - Assessment (1) Hypoxia Code(s): R09.02 - Hypoxemia Status: Acute (2) Weakness Code(s): R53.1 - Weakness Status: Acute - Plan 73 year old male with DM, HTN, history of thyroid cancer s/p ablation, and HLD presenting with weakness found to have mild hypoxia. 1. Syncope with transient hypotension and hypoxia - O2 sat 90% on room air - Pt not an active smoker (quit >20 years ago) and has no h/o respiratory disease - Exam with no wheezing or crackles - CXR with normal cardiac contour and clear lung [place], personally reviewed - CBC with Hb 15.0 which may be compensatory if chronically hypoxic - EKG showing 1st degree AV block - Because he has coronary risk factors (DM, HTN, HLD, and history of tobacco), will rule out with serial enzymes and EKGs. Patient ruled out for ND - Obtain 2D echo to assess for pulmonary HTN or structural heart abnormalities - CTA chest no evidence of pulmonary embolism but has atelectasis, tiny pericardial effusion, cardiomegaly, coronary artery calcifications and low- density lesions throughout the liver(aware to follow o/p) - Head CT without acute findings - Neuro checks, seizure precautions follow-up EEG and brain MRI. Cardiology and neurology consult - Respiratory walk test - May benefit from outpatient sleep study 2. 1st degree AV block - Hold home metoprolol - Monitor on telemetry - Avoid AV liberty blocking agents 3. Weakness - Pt with multiple comorbidities and on several antihypertensives that can cause weakness/fatigue - Holding home metoprolol in light of AV block as above - Therapeutic TSH - Potassium mildly low, on supplementation - Consult PT to eval and treat 4. Dizziness - Does not sound like vertigo since no sensation of room spinning and not positional - Clinically sounds more like orthostatics given he has symptoms when he rises - Negative orthostatic vital signs 5. Hypokalemia - Potassium mildly low at 3.4. Check magnesium 2.1 - Continue home supplementation - Monitor 6. DM - Hold home glipizide - SSI with Accu-Cheks per protocol 7. HTN - Holding home metoprolol for 1st degree AV block - Continue home Losartan, clonidine - Hydralazine PRN 8. HLD - Continue home statin 9. CKD, stage 3a - At baseline - Follows with nephrology as outpatient - Avoid nephrotoxins - Monitor renal function 10. Hypothyroidism, post-ablation - Continue home levothyroxine DVT prophylaxis: heparin
[2018-08-25] MEDS: Insulin NovoLOG Aspart Correctional Sugar Inj SQ SCH ×4 (09:02→20:39)
--- NOTE | 2018-08-25 12:48 | MB ---
cc: Bella Auguste MD DATE: 08/25/2018 REASON FOR CONSULTATION: Syncope. HISTORY OF PRESENT ILLNESS: This 73-year-old male with a history of hypertension, diabetes, hyperlipidemia, BPH, came to the ER for some dizziness and weakness that started in the morning. [place] lightheaded, but did not pass out and all of a sudden he had a syncopal spell, went unresponsive, did not respond to sternal rub. Oxygen saturations dropped into the 70s and also was hypotensive. He did regain consciousness in a few minutes. He had a CT of the head that was unremarkable and transferred to the ICU for evaluation and close monitoring. He is back to baseline. REVIEW OF SYSTEMS: Denies any headache, dizziness, chest pain, shortness of breath, weakness, numbness or tingling. PAST MEDICAL HISTORY: As stated. SOCIAL HISTORY: He lives with his family. Quit smoking over 20 years ago. No alcohol or drugs. FAMILY HISTORY: Heart disease. PAST SURGICAL HISTORY: Thyroidectomy, TURP and tonsils. MEDICINES: Will defer to his MAR. PHYSICAL EXAMINATION: VITAL SIGNS: Temperature is 97.9. He has been afebrile. Pulse 61, respiratory rate 14, blood pressure is 124/69. Following the blood pressure since admission, there have been some elevations, but normotensive now. NECK: Supple, no bruits. HEART: Regular. NEUROLOGIC: He is awake and alert. He is oriented. He is fluent. His pupils are reactive. Visual puente are full. No nystagmus. His face is symmetrical. Tongue midline. Facial sensation is normal. Hearing is normal. Motor: His tone is normal. He does not have any drift or leg lag. Cerebellar is normal. DTRs are 1+. Toes withdraw. Sensory otherwise normal. Gait I am going to defer. He is in the ICU. LABORATORY DATA: Reviewed. His RDW is a little elevated at 17.5, otherwise CBC is unremarkable. Chemistry: Potassium 3.3, glucose 121, calcium 7.8, random glucose is 94. GFR 60. Urine: 30 protein, otherwise unremarkable. MRSA screen was negative. IMAGING: CT without any acute findings. He had a CTA of the chest. No PE was seen. There was no PE. IMPRESSION: Syncope, etiology at this point is really unknown. He may have become hypotensive. His daughter states that they may have given him his clonidine, which he does not take at home, only if he has a certain blood pressure parameter and she is worried that he may have passed out from that. However, given the findings from yesterday's initial presentation, he will undergo an echocardiogram and electroencephalogram and I believe imaging also of the brain has been ordered. I will take that up further to the [place] of [place] as well as carotid just to make sure there is no high-grade stenosis. Continue current care. We will continue to monitor and make further recommendations as needed. I believe he was also seen by Cardiology. MD ANNAMARIE Larry/jose , 12:15 PM , 12:23 PM
[2018-08-25] MEDS ORDERED: Gadobutrol PF 10 MMOL/10 ML Vial (for RAD) IV.SIG ONE (12:50)
--- NOTE | 2018-08-25 13:33 | MR ---
EXAM DATE: 08/25/2018 1:24 PM EST AGE/SEX: 73 years / Male INDICATIONS: Dizziness. Generalized weakness. CLINICAL DATA: This is the patient's initial encounter. Patient reports that signs and symptoms have been present for 2 days and indicates a pain score of 0/10. MEDICAL/SURGICAL HISTORY: Carcinoma, thyroid. Renal insufficiency, chronic. Hypertension. Thy roidectomy. Prostate surgery. COMPARISON: [facility] – [place], CT HEAD W/O CONTRAST, 08/24/2018. . TECHNIQUE: Multiplanar, multisequence examination of the brain was performed without contrast. FINDINGS: Cerebrum: The ventricles are normal for age. No evidence of midline shift, mass lesion, hemorrhage or acute infarction. No extraaxial fluid collections are seen. The pituitary gland and suprasellar cistern are normal in configuration. White Matter: No significant signal abnormalities are seen in the white matter. Posterior Fossa: The cerebellum and brainstem are intact. The 4th ventricle is midline. The cerebel lopontine angle is unremarkable. The cerebellar tonsils are normal in position. Diffusion Imaging: No focal areas of restricted diffusion are seen. No evidence of acute infarction . Extracranial: The visualized portions of the orbits are unremarkable. There is a mucous retention cy st in the left maxillary sinus. CONCLUSION: 1. Unremarkable MRI of the brain for patient's age. 2. Chronic left maxillary sinus disease. Electronically signed by: Real Mccallum MD 08/25/2018 1:32 PM EST
--- NOTE | 2018-08-25 13:35 | MR ---
EXAM DATE: 08/25/2018 1:24 PM EST AGE/SEX: 73 years / Male INDICATIONS: Dizziness. Generalized weakness. CLINICAL DATA: This is the patient's initial encounter. Patient reports that signs and symptoms have been present for 2 days and indicates a pain score of 0/10. MEDICAL/SURGICAL HISTORY: Carcinoma, thyroid. Hypertension. Renal insufficiency, chronic. Thy roidectomy. Prostate surgery. COMPARISON: No prior exams available for comparison. TECHNIQUE: 3D itcj-sy-nxeoln MRA was performed. Source images, multiplanar STS MIP, and 3D volum e MIP reconstructions were reviewed. FINDINGS: There is excellent visualization of the major intracranial arteries out to the second-order branch ve ssels. There is no evidence for aneurysm, vessel truncation or stenosis, and no evidence for vascula r malformation. CONCLUSION: 1. Unremarkable MRA of the brain. Electronically signed by: Real Mccallum MD 08/25/2018 1:34 PM EST
--- NOTE | 2018-08-25 13:36 | MR ---
EXAM DATE: 08/25/2018 1:25 PM EST AGE/SEX: 73 years / Male INDICATIONS: Dizziness. Generalized weakness. CLINICAL DATA: This is the patient's initial encounter. Patient reports that signs and symptoms have been present for 2 days and indicates a pain score of 0/10. MEDICAL/SURGICAL HISTORY: Carcinoma, thyroid. Hypertension. Renal insufficiency, chronic. Thy roidectomy. Prostate surgery. COMPARISON: No prior exams available for comparison. TECHNIQUE: 10cc ml Gadavist (gadobutrol) contrast infused MRA (single exam dose) of the extracrania l circulation was performed using a neurovascular coil. Postprocessing was performed, including rota ting sub-volume maximum intensity projections of each carotid artery, rotating full-volume maximum in tensity projections of both carotid arteries, sagittal and coronal sliding thin-slab reformations of each carotid artery, and left oblique sliding thin-slab reformation through the aortic arch to includ e the origin of the arch branch vessels. FINDINGS: Aortic Arch : There is a three-vessel origin of the great vessels from the aorta. No evidence of o stial narrowing. Right Carotid : The common carotid artery is intact. The carotid bulb has a normal configuration wi thout ulceration or narrowing. The internal carotid artery lumen is smooth without stenosis. The ex ternal carotid artery is intact. Left Carotid : The common carotid artery is intact. The carotid bulb has a normal configuration wit hout ulceration or narrowing. The internal carotid artery lumen is smooth without stenosis. The ext ernal carotid artery is intact. Vertebrals : The vertebral arteries have a symmetric diameter. No stenotic lesions are seen. CONCLUSION: 1. Unremarkable MRA of the carotids. Percent stenosis is calculated using the diameter of the stenotic region over the diameter of the nor mal distal internal carotid artery Electronically signed by: Real Mccallum MD 08/25/2018 1:35 PM EST
--- NOTE | 2018-08-25 15:03 | MB ---
cc: Dony Gurrola DO DATE: 08/25/2018 REASON FOR CONSULTATION: Syncope. HISTORY OF PRESENT ILLNESS: Uday Mckenzie is a pleasant 73-year-old male who presented to [facility] due to dizziness and weakness. At the time of admission, he just felt lightheaded, but denies passing out. At that time, his vitals are stable with a normal heart rate and blood pressure. He denies any chest pain, shortness of breath or palpitations. He underwent a CTA which was negative for pulmonary embolus and his lab work was relatively unremarkable. Last night around 5:30 p.m., he was noted to be unresponsive and Dr. Rosales evaluated the patient and was unable to get him to respond to a sternal rub. His heart rates were in the 70s at that time and no arrhythmias were noted. He was hypotensive and his oxygen saturations dropped into the 70s. He regained consciousness within a few minutes and was alert, awake, and oriented x3 with no postictal state. He denies loss of bowel or bladder. He was moved to the ICU for further evaluation. In seeing him this morning, he states that he did not remember what happened and the last thing he remembered was watching the football game on TV and then when he came to there was a lot of people in the room asking him questions. In discussing with family apparently, he had a similar episode in 2014, but at that time he was being treated for sepsis and with a very sick state. PAST MEDICAL HISTORY: 1. Diabetes. 2. Hypertension. 3. Hyperlipidemia. 4. Benign prostatic hypertrophy. 5. Sepsis secondary to a left SC joint septic arthritis (2014). PAST SURGICAL HISTORY: 1. Tonsillectomy. 2. Thyroidectomy. 3. TURP. ALLERGIES: NO KNOWN DRUG ALLERGIES. MEDICATIONS: 1. Losartan 100 mg daily. 2. Synthroid 150 mg daily. 3. Glipizide 2.5 mg daily. 4. Norvasc 10 mg daily. 5. Metoprolol tartrate 100 mg b.i.d. 6. Clonidine 0.5 mg four times daily. 7. Lipitor 20 mg daily. 8. Potassium 20 mEq t.i.d. FAMILY HISTORY: Denies premature coronary artery disease or sudden cardiac in the family. SOCIAL HISTORY: The patient quit smoking greater than 20 years ago. Denies alcohol or drug abuse. REVIEW OF SYSTEMS: Fourteen systems were reviewed including osteopathic, pertinent positives and negatives above, otherwise negative. PHYSICAL EXAMINATION: VITAL SIGNS: Temperature 97.9, heart rate 61, blood pressure 124/69, respirations 18, pulse oximetry 98% on 3 liters. GENERAL: The patient appears well, in no acute distress. Alert, awake and oriented x3. HEENT: Extraocular muscles intact. Mucous membranes moist. NECK: Supple. No JVD at 45 degrees. No carotid bruits heard bilaterally. Carotid upstroke is brisk in nature. HEART: Regular rate and rhythm. Positive first and second heart sounds with a 1/6 crescendo/decrescendo murmur to the right sternal border. LUNGS: Clear to auscultation bilaterally. No wheezes, rales or rhonchi. ABDOMEN: Soft, nontender, nondistended, no organomegaly noted. EXTREMITIES: Show no clubbing, cyanosis or edema. Femoral and distal pulses intact bilaterally. NEUROLOGIC: No focal deficits. SKIN: Warm, dry and intact. OSTEOPATHIC: No kyphoscoliosis, lordosis or paraspinal tender points. LABORATORY DATA: Hemoglobin 14.3, hematocrit 43.3, platelets 166. Potassium 3.3, BUN 15, creatinine 1.42. Ammonia 16. Lactic acid 1.1. DIAGNOSTIC DATA: Electrocardiogram (08/24/2018 1703): Sinus rhythm, nonspecific ST-T wave changes. IMPRESSION: 1. Syncopal episode of unknown cause. 2. Transient hypotension, which resolved. 3. Hypoxemia, which is resolved. 4. Hypertension. 5. Diabetes. 6. Hyperlipidemia. RECOMMENDATIONS: 1. Mr. Mckenzie had a syncopal episode of an unknown cause. Unfortunately, he is unable to give us much information, what happened during or before the event. He denies any chest pain, shortness of breath, or palpitations at the time of the event from what he remembers and before the event. 2. We will have him undergo a 2-D echo to look at his overall left ventricular function, cardiac structure and possible valvulopathies. 3. It does appear he was mildly dehydrated, and this, as well as getting clonidine, could have dropped his pressure, although this would be somewhat unusual to cause a syncopal event. Also, he is on Lopressor and he might not have had the ability to increase his chronotropic rate to increase his cardiac output. 4. Neurology has been consulted and we will await their evaluation with him getting multiple imaging of the head to determine a possible neurologic cause. 5. For now most antihypertensives have been stopped and we may need to allow him to have permissive hypertension at this time until further evaluation can be done. Thank you for allowing me to see Uday Mckenzie. If there are any questions, please do not hesitate to call. Dony Gurrola DO VGP/te , 01:45 PM , 01:57 PM
--- NOTE | 2018-08-25 20:22 | ECHRPT ---
Indication: CPHD CONCLUSIONS Normal left ventricular size. Wall thickness is normal. The left ventricular systolic function is low normal with an estimated ejection fraction in the rang e of 50- 55%. Trace mitral valve regurgitation. Aortic valve sclerosis is present. BP: / HR: Rhythm: MEASUREMENTS (Male / Female) Normal Values Technical Quality: 2D ECHO LV Diastolic Diameter PLAX 4.4 cm 4.2 - 5.9 / 3.9 - 5.3 cm LV Systolic Diameter PLAX 3.5 cm IVS Diastolic Thickness 0.9 cm 0.6 - 1.0 / 0.6 - 0.9 cm LVPW Diastolic Thickness 0.6 cm 0.6 - 1.0 / 0.6 - 0.9 cm LV Relative Wall Thickness 0.3 RV Internal Dim ED PLAX 2.2 cm M-MODE Aortic Root Diameter MM 3.1 cm AV Cusp Separation MM 2.0 cm DOPPLER Mitral E Point Velocity 62.2 cm/s Mitral A Point Velocity 69.1 cm/s Mitral E to A Ratio 0.9 FINDINGS LEFT VENTRICLE Normal left ventricular size. Wall thickness is normal. The left ventricular systolic function is low normal with an estimated ejection fraction in the rang e of 50- 55%. RIGHT VENTRICLE Normal right ventricular size and systolic function. LEFT ATRIUM The left atrial size is normal. RIGHT ATRIUM The right atrial size is normal. ATRIAL SEPTUM Normal atrial septal thickness without atrial level shunting by limited color doppler interrogation. AORTA The aortic root and proximal ascending aorta are normal in size on limited imaging. MITRAL VALVE Trace mitral valve regurgitation. AORTIC VALVE Aortic valve sclerosis is present. TRICUSPID VALVE Structurally normal tricuspid valve. No tricuspid valve stenosis or regurgitation. PULMONARY VALVE The pulmonary valve is not well visualized. VESSELS The inferior vena cava is normal in size. PERICARDIUM No pericardial effusion. Yosvany Chiu MD, FACC, FSCAI (Electronically Signed) Final Date:25 August 2018 20:20
[2018-08-25] MEDS: hydrALAZINE HCl Inj 20 MG/ML Vial IV.PUSH PRN (20:26)
[2018-08-26 04:34] LABS: Baso % (Auto) 0.5 % (0.0-2.0); Eos # (Auto) 0.1 th/mm3 (0.0-0.4); Eos % (Auto) 2.7 % (0.0-4.0); Hematocrit 43.5 % (39.0-51.0); Hemoglobin 14.4 gm/dL (13.0-17.0); Lymph % (Auto) 19.9 % (9.0-44.0); Mean Corpuscular Hemoglobin 27.7 pg (27.0-34.0); Mean Platelet Volume 7.7 fL (7.0-11.0); Mono # (Auto) 0.6 th/mm3 (0.0-0.9); Mono % (Auto) 12.2 % (0.0-8.0); Neut # (Auto) 3.2 th/mm3 (1.8-7.7); Neut % (Auto) 64.7 % (16.0-70.0); Platelet Count 166 th/mm3 (150-450); Red Blood Count 5.18 mil/mm3 (4.50-5.90); Red Cell Distribution Width 17.3 % (11.6-17.2); White Blood Count 4.9 th/mm3 (4.0-11.0)
[2018-08-26 04:38] LABS: Calcium 8.1 mg/dL (8.5-10.1); Carbon Dioxide 34.4 meq/L (21.0-32.0); Magnesium 2.2 mg/dL (1.5-2.5); Potassium 3.3 meq/L (3.5-5.1)
[2018-08-26] MEDS: hydrALAZINE HCl Inj 20 MG/ML Vial IV.PUSH PRN ×2 (05:46→23:06)
[2018-08-26] MEDS: Levothyroxine 150 MCG Tablet PO SCH (05:46)
[2018-08-26] MEDS: amLODIPine 10 MG Tablet PO SCH (08:24)
[2018-08-26] MEDS: Heparin - SQ 10,000 UNITS/ML Vial SQ SCH ×2 (08:24→20:05)
[2018-08-26] MEDS: Senna/Docusate Sodium 8.6/50 MG Tablet PO SCH ×2 (08:24→20:04)
--- NOTE | 2018-08-26 08:42 | P.PN ---
Subjective Interval history: Follow-up syncope. Echocardiogram unremarkable. EEG pending. BP overall stable just 1 spike early this morning. Patient ambulated in the hallway PT recommends no home care. Physical Exam Vital signs: Vital Signs 08/25/18 09:00 08/25/18 09:26 08/25/18 09:38 Temperature 97.9 F Pulse Rate 62 61 61 Respiratory Rate 14 Blood Pressure 140/77 140/77 148/83 H Pulse Oximetry 97 96 97 08/25/18 10:00 08/25/18 10:38 08/25/18 11:00 Temperature Pulse Rate 61 59 L 58 L Respiratory Rate Blood Pressure 140/75 Pulse Oximetry 97 98 98 08/25/18 11:38 08/25/18 12:00 08/25/18 13:24 Temperature Pulse Rate 61 64 67 Respiratory Rate Blood Pressure 124/69 137/76 Pulse Oximetry 94 L 93 L 08/25/18 13:38 08/25/18 14:00 08/25/18 14:38 Temperature Pulse Rate 61 62 61 Respiratory Rate Blood Pressure 124/73 149/76 H Pulse Oximetry 94 L 95 97 08/25/18 15:00 08/25/18 15:38 08/25/18 16:00 Temperature 99.2 F Pulse Rate 61 59 L 64 Respiratory Rate Blood Pressure 131/74 172/75 H Pulse Oximetry 94 L 94 L 94 L 08/25/18 16:38 08/25/18 17:00 08/25/18 17:38 Temperature Pulse Rate 61 59 L 73 Respiratory Rate Blood Pressure 147/76 H 181/86 H Pulse Oximetry 96 98 95 08/25/18 17:49 08/25/18 18:00 08/25/18 18:38 Temperature Pulse Rate 66 66 70 Respiratory Rate Blood Pressure 154/80 H 153/81 H Pulse Oximetry 94 L 95 93 L 08/25/18 19:00 08/25/18 19:38 08/25/18 19:40 Temperature Pulse Rate 72 70 Respiratory Rate Blood Pressure 163/90 H Pulse Oximetry 93 L 94 L 93 L 08/25/18 20:00 08/25/18 20:38 08/25/18 21:00 Temperature 97.7 F Pulse Rate 68 70 64 Respiratory Rate Blood Pressure 138/79 138/79 Pulse Oximetry 94 L 93 L 92 L 08/25/18 21:38 08/25/18 22:00 08/25/18 22:38 Temperature Pulse Rate 72 68 71 Respiratory Rate Blood Pressure 125/75 125/75 149/79 H Pulse Oximetry 95 92 L 95 08/25/18 23:00 08/25/18 23:38 08/26/18 00:00 Temperature 98.0 F Pulse Rate 63 61 80 Respiratory Rate Blood Pressure 135/79 Pulse Oximetry 95 95 93 L 08/26/18 00:38 08/26/18 01:00 08/26/18 01:38 Temperature Pulse Rate 63 62 63 Respiratory Rate Blood Pressure 134/80 120/77 Pulse Oximetry 96 95 94 L 08/26/18 02:00 08/26/18 02:38 08/26/18 03:00 Temperature Pulse Rate 78 75 71 Respiratory Rate Blood Pressure 133/69 Pulse Oximetry 95 95 94 L 08/26/18 03:38 08/26/18 04:00 08/26/18 04:38 Temperature 97.9 F Pulse Rate 78 74 65 Respiratory Rate Blood Pressure 146/82 H 140/80 Pulse Oximetry 96 96 96 08/26/18 05:00 08/26/18 05:38 08/26/18 06:00 Temperature Pulse Rate 64 82 75 Respiratory Rate Blood Pressure 181/92 H Pulse Oximetry 97 94 L 97 Intake & Output 08/25/18 08/26/18 08/26/18 18:59 06:59 18:59 Intake Total 480 / 480 480 / 480 Output Total 1260 / 1260 Balance 480 / 480 -780 / -780 Weight 95.9 kg Intake: Oral 480 / 480 480 / 480 Output: Urine 1260 / 1260 Other: # Voids 3 Date of Last Bowel Movement 08/23/18 08/25/18 # Bowel Movements 1 0 Narrative: HEENT/Neuro: No pallor or icterus, tongue moist, MARVIN, Awake alert oriented 3 , nonfocal grossly, moving all 4 extremities with good power bilaterally Neck: No JVD Chest/pulmonary: CTA bilaterally Cardiovascular: S1-S2 regular no gallop or murmur GI/abdomen: Soft, nontender, bowel sounds present Extremities: Warm bilaterally, no edema Results - Labs CBC & Chem 7: 08/26/18 03:15 08/26/18 03:15 Laboratory Results - last 24 hr 08/25/18 08/25/18 08/25/18 03:35 09:00 11:41 WBC RBC Hgb Hct MCV MCH MCHC RDW Plt Count MPV Neut % (Auto) Lymph % (Auto) [place] % (Auto) Eos % (Auto) Baso % (Auto) Neut # (Auto) Lymph # (Auto) [place] # (Auto) Eos # (Auto) Baso # (Auto) WBC Differential Differential Comment Sodium Potassium Chloride Carbon Dioxide Anion Gap BUN Creatinine Estimated GFR POC Glucose 103 121 H Random Glucose Calcium Magnesium 2.1 08/25/18 08/25/18 08/26/18 17:23 20:32 03:15 WBC 4.9 RBC 5.18 Hgb 14.4 Hct 43.5 MCV 84.0 MCH 27.7 MCHC 33.0 RDW 17.3 H Plt Count 166 MPV 7.7 Neut % (Auto) 64.7 Lymph % (Auto) 19.9 [place] % (Auto) 12.2 H Eos % (Auto) 2.7 Baso % (Auto) 0.5 Neut # (Auto) 3.2 Lymph # (Auto) 1.0 [place] # (Auto) 0.6 Eos # (Auto) 0.1 Baso # (Auto) 0.0 WBC Differential . Differential Comment Auto diff final Sodium Potassium Chloride Carbon Dioxide Anion Gap BUN Creatinine Estimated GFR POC Glucose 105 119 H Random Glucose Calcium Magnesium 08/26/18 03:15 WBC RBC Hgb Hct MCV MCH MCHC RDW Plt Count MPV Neut % (Auto) Lymph % (Auto) [place] % (Auto) Eos % (Auto) Baso % (Auto) Neut # (Auto) Lymph # (Auto) [place] # (Auto) Eos # (Auto) Baso # (Auto) WBC Differential Differential Comment Sodium 143 Potassium 3.3 L Chloride 103 Carbon Dioxide 34.4 H Anion Gap 6 BUN 17 Creatinine 1.34 H Estimated GFR 64 L POC Glucose Random Glucose 102 Calcium 8.1 L Magnesium 2.2 Microbiology 08/24/18 10:30 Blood - Peripheral Aerobic Blood Culture - Preliminary No growth in 1 day 08/24/18 10:30 Blood - Peripheral Anaerobic Blood Culture - Preliminary No growth in 1 day 08/24/18 10:45 Blood - Peripheral Aerobic Blood Culture - Preliminary No growth in 1 day 08/24/18 10:45 Blood - Peripheral Anaerobic Blood Culture - Preliminary No growth in 1 day - Imaging Impressions Head MRA 08/25/18 00:00 CONCLUSION: 1. Unremarkable MRA of the brain. Neck MRA 08/25/18 00:00 CONCLUSION: 1. Unremarkable MRA of the carotids. Percent stenosis is calculated using the diameter of the stenotic region over the diameter of the normal distal internal carotid artery Head MRI 08/25/18 07:00 CONCLUSION: 1. Unremarkable MRI of the brain for patient's age. 2. Chronic left maxillary sinus disease. - Procedures None Assessment and Plan - Assessment (1) Hypoxia Code(s): R09.02 - Hypoxemia Status: Acute (2) Weakness Code(s): R53.1 - Weakness Status: Acute - Plan 73 year old male with DM, HTN, history of thyroid cancer s/p ablation, and HLD presenting with weakness found to have mild hypoxia. 1. Syncope with transient hypotension and hypoxia. Could have been related to clonidine which he received prior to episode. At this time etiology not clear however patient has been stable ambulated in the hallway with physical therapy - O2 sat 90% on room air - Pt not an active smoker (quit >20 years ago) and has no h/o respiratory disease - Exam with no wheezing or crackles - CXR with normal cardiac contour and clear lung puente, personally reviewed - CBC with Hb 15.0 which may be compensatory if chronically hypoxic - EKG showing 1st degree AV block - Because he has coronary risk factors (DM, HTN, HLD, and history of tobacco), will rule out with serial enzymes and EKGs. Patient ruled out for TN - Unremarkable echo cardia - CTA chest no evidence of pulmonary embolism but has atelectasis, tiny pericardial effusion, cardiomegaly, coronary artery calcifications and low- density lesions throughout the liver(aware to follow o/p) - Head CT and brain MRI without acute findings - Neuro checks, seizure precautions follow-up EEG unremarkable. Cardiology and neurology consulted - Respiratory walk test. Consider pulmonary function tests and pulmonary consultation if persistent hypoxia - May benefit from outpatient sleep study 2. 1st degree AV block - Stable - Monitor on telemetry 3. Weakness - Pt with multiple comorbidities and on several antihypertensives that can cause weakness/fatigue - Therapeutic TSH - Potassium mildly low, on supplementation - Consult PT to eval and treat recommends no home care 4. Dizziness - Does not sound like vertigo since no sensation of room spinning and not positional - Clinically sounds more like orthostatics given he has symptoms when he rises - Negative orthostatic vital signs 5. Hypokalemia - Potassium mildly low at 3.4. Check magnesium 2.1 - Continue home supplementation, increase to 30 mEq p.o. 3 times a day - Monitor 6. DM - Hold home glipizide - SSI with Accu-Cheks per protocol 7. HTN - Uncontrolled restart metoprolol at a lower dose and monitor - Continue home Losartan and discontinue clonidine which he takes at home as needed - Hydralazine PRN 8. HLD - Continue home statin 9. CKD, stage 3a - At baseline - Follows with nephrology as outpatient - Avoid nephrotoxins - Monitor renal function 10. Hypothyroidism, post-ablation - Continue home levothyroxine DVT prophylaxis: heparin Discharge Planning: Possible discharge in the morning
[2018-08-26] MEDS: Insulin NovoLOG Aspart Correctional Sugar Inj SQ SCH ×4 (09:27→20:05)
--- NOTE | 2018-08-26 11:10 | MG ---
cc: Bella Auguste MD EEG NUMBER: [id number]. REFERRING PHYSICIAN: With photic stimulation only. Awake, drowsy, asleep, alert, oriented. CT negative. Admitted with some dizziness, unresponsiveness, with decreased saturations. DESCRIPTION OF RECORD: The patient has an overall background rhythm of 9 Hz, 20-60 microvolts, symmetrical, well organized background. Photic stimulation does show a normal posterior driving response. No epileptiform features. IMPRESSION: Normal electroencephalogram. Clinical correlation. MD ANNAMARIE Larry/mana/rashaun , 08:28 AM , 08:34 AM
[2018-08-26] MEDS ORDERED: hydrALAZINE 25 MG Tablet PO SCH (11:30)
[2018-08-26] MEDS ORDERED: Metoprolol Tartrate 100 MG Tablet PO SCH (11:35)
--- NOTE | 2018-08-26 14:40 | ECG ---
Date Performed: 08/24/2018 Time Performed: 17:03:57 PTAGE: 73 years EKG: Sinus rhythm MODERATE INTRAVENTRICULAR CONDUCTION DELAY BORDERLINE ECG Persistent nonspecific ST T changes PREVIOUS TRACING : 08/24/2018 10.15 DOCTOR: Emir Carter Interpretating Date/Time 08/26/2018 14:38:43
--- NOTE | 2018-08-26 14:40 | ECG ---
Date Performed: 08/24/2018 Time Performed: 10:15:15 PTAGE: 73 years EKG: Sinus rhythm WITH FIRST DEGREE AV BLOCK BORDERLINE LEFT AXIS DEVIATION ABNORMAL ECG New ST T wave changes are not ed, cannot rule out ischemia PREVIOUS TRACING : 07/29/15 DOCTOR: Emir Carter Interpretating Date/Time 08/26/2018 14:38:31
--- NOTE | 2018-08-26 14:40 | ECG ---
Date Performed: 08/24/2018 Time Performed: 22:36:52 PTAGE: 73 years EKG: Sinus bradycardia with borderline 1st degree A-V block Prolonged QT interval Leftward axis Inferior and anterior T wave changes are nonspecific Nonspecific ST T wave changes increased since pr ior tracing Clinical correlation is recommended Borderline ECG PREVIOUS TRACING : 08/24/2018 17.03 DOCTOR: Emri Carter Interpretating Date/Time 08/26/2018 14:39:10
--- NOTE | 2018-08-26 15:53 | P.PNCA ---
Subjective Interval history: No events overnight Blood pressure mildly low this morning, asymptomatic Blood pressure labile Medications and Allergies Active Medications: Active Medications Acetaminophen (Tylenol) 650 mg PO Q4H PRN PRN Reason: Temp > 100.4 Al Hydroxide/Mg Hydroxide (Milk Of Magnesia Liq) 30 ml PO Q12H PRN PRN Reason: Mild Constipation Amlodipine Besylate (Norvasc) 10 mg PO DAILY ON LICENSE OF [facility] Last Admin: 08/26/18 08:24 Dose: 10 mg Atorvastatin Calcium (Lipitor) 20 mg PO DAILY ON LICENSE OF [facility] Last Admin: 08/26/18 08:24 Dose: 20 mg Bisacodyl (Dulcolax Supp) 10 mg RECTAL DAILY PRN PRN Reason: SEVERE CONSITIPATION Dextrose (D50w Vial) 50 ml IV.PUSH UNSCH PRN PRN Reason: PER HYPOGLYCEMIA PROTOCOL Enalaprilat (Vasotec Inj) 1.25 mg IV.PUSH Q6H PRN PRN Reason: SEE LABEL COMMENTS Glucagon (Glucagon Inj) 1 mg OTHER PRN PRN PRN Reason: for Hypoglycemia Protocol Heparin Sodium (Porcine) (Heparin Inj) 5,000 units SQ Q12HR ON LICENSE OF [facility] Last Admin: 08/26/18 08:24 Dose: 5,000 units Hydralazine HCl (Apresoline Inj) 10 mg IV.PUSH Q4H PRN PRN Reason: SBP > 160 Last Admin: 08/26/18 05:46 Dose: 10 mg Insulin Aspart (Novolog Insulin Correctional Sugar Inj) 0 unit SQ [facility]; Protocol Last Admin: 08/26/18 12:06 Dose: Not Given Lactulose (Lactulose Liq) 30 ml PO DAILY PRN PRN Reason: SEVERE CONSITIPATION Levothyroxine Sodium (Synthroid) 150 mcg PO DAILY@0600 ON LICENSE OF [facility] Last Admin: 08/26/18 05:46 Dose: 150 mcg Losartan Potassium (Cozaar) 100 mg PO DAILY ON LICENSE OF [facility] Last Admin: 08/26/18 08:23 Dose: 100 mg Metoprolol Tartrate (Lopressor) 50 mg PO BID ON LICENSE OF [facility] Multivitamins (Theragran) 1 tab PO DAILY ON LICENSE OF [facility] Last Admin: 08/26/18 08:23 Dose: 1 tab Ondansetron HCl (Zofran Inj) 4 mg IV.PUSH Q6H PRN PRN Reason: NAUSEA OR VOMITING Potassium Chloride (Klor-Con 10) 30 meq PO TID ON LICENSE OF [facility] Last Admin: 08/26/18 12:20 Dose: 30 meq Senna/Docusate Sodium (Mary-Colace) 1 tab PO BID ON LICENSE OF [facility] Last Admin: 08/26/18 08:24 Dose: 1 tab Sennosides (Senokot) 17.2 mg PO Q12H PRN PRN Reason: Moderate Constipation Sodium Chloride (Ns Flush) 2 ml IV.FLUSH BID ON LICENSE OF [facility] Last Admin: 08/26/18 08:24 Dose: 2 ml Sodium Chloride (Ns Flush) 2 ml IV.FLUSH PRN PRN PRN Reason: FLUSH AFTER USING IV ACCESS Allergies Allergy/AdvReac Type Severity Reaction Status Date / Time No Known Allergies Allergy Verified 08/24/18 10:06 Home Medications Medication Instructions Recorded Confirmed Type amlodipine 10 mg PO DAILY 08/24/18 08/24/18 History atorvastatin 20 mg PO DAILY 08/24/18 08/24/18 History calcium carbonate-vit D3-min 1 tab PO DAILY 08/24/18 08/24/18 History [Calcium 600 + Minerals] clonidine HCl 0.5 mg PO QID 08/24/18 08/24/18 History glipizide 2.5 mg PO DAILY 08/24/18 08/24/18 History levothyroxine 150 mcg PO DAILY 08/24/18 08/24/18 History losartan 100 mg PO DAILY 08/24/18 08/24/18 History metoprolol tartrate 100 mg PO BID 08/24/18 08/24/18 History multivitamin [Multiple Vitamins] 1 tab PO DAILY 08/24/18 08/24/18 History potassium chloride 20 meq PO TID 08/24/18 08/24/18 History Physical Exam Vital signs: Vital Signs 08/25/18 16:00 08/25/18 16:38 08/25/18 17:00 Temperature 99.2 F Pulse Rate 64 61 59 L Blood Pressure 172/75 H 147/76 H Pulse Oximetry 94 L 96 98 08/25/18 17:38 08/25/18 17:49 08/25/18 18:00 Temperature Pulse Rate 73 66 66 Blood Pressure 181/86 H 154/80 H Pulse Oximetry 95 94 L 95 08/25/18 18:38 08/25/18 19:00 08/25/18 19:38 Temperature Pulse Rate 70 72 70 Blood Pressure 153/81 H 163/90 H Pulse Oximetry 93 L 93 L 94 L 08/25/18 19:40 08/25/18 20:00 08/25/18 20:38 Temperature 97.7 F Pulse Rate 68 70 Blood Pressure 138/79 138/79 Pulse Oximetry 93 L 94 L 93 L 08/25/18 21:00 08/25/18 21:38 08/25/18 22:00 Temperature Pulse Rate 64 72 68 Blood Pressure 125/75 125/75 Pulse Oximetry 92 L 95 92 L 08/25/18 22:38 08/25/18 23:00 08/25/18 23:38 Temperature Pulse Rate 71 63 61 Blood Pressure 149/79 H 135/79 Pulse Oximetry 95 95 95 08/26/18 00:00 08/26/18 00:38 08/26/18 01:00 Temperature 98.0 F Pulse Rate 80 63 62 Blood Pressure 134/80 Pulse Oximetry 93 L 96 95 08/26/18 01:38 08/26/18 02:00 08/26/18 02:38 Temperature Pulse Rate 63 78 75 Blood Pressure 120/77 133/69 Pulse Oximetry 94 L 95 95 08/26/18 03:00 08/26/18 03:38 08/26/18 04:00 Temperature 97.9 F Pulse Rate 71 78 74 Blood Pressure 146/82 H Pulse Oximetry 94 L 96 96 08/26/18 04:38 08/26/18 05:00 08/26/18 05:38 Temperature Pulse Rate 65 64 82 Blood Pressure 140/80 181/92 H Pulse Oximetry 96 97 94 L 08/26/18 06:00 08/26/18 07:00 08/26/18 07:38 Temperature Pulse Rate 75 85 79 Blood Pressure 129/74 Pulse Oximetry 97 96 98 08/26/18 08:00 08/26/18 08:38 08/26/18 09:00 Temperature 98.4 F Pulse Rate 76 78 76 Blood Pressure 150/77 H 150/77 H Pulse Oximetry 95 95 08/26/18 09:03 08/26/18 09:04 08/26/18 10:00 Temperature Pulse Rate 100 H 93 H Blood Pressure 173/79 H Pulse Oximetry 84 L 08/26/18 11:00 08/26/18 12:00 08/26/18 12:21 Temperature 98.6 F Pulse Rate 80 77 75 Blood Pressure 90/54 L Pulse Oximetry 96 95 96 08/26/18 13:00 08/26/18 14:00 08/26/18 14:14 Temperature Pulse Rate 76 73 75 Blood Pressure 142/71 H Pulse Oximetry 94 L 93 L 93 L Intake & Output 08/25/18 08/26/18 08/26/18 18:59 06:59 18:59 Intake Total 480 / 480 480 / 480 Output Total 1260 / 1260 Balance 480 / 480 -780 / -780 Weight 95.9 kg Intake: Oral 480 / 480 480 / 480 Output: Urine 1260 / 1260 Other: # Voids 3 Date of Last Bowel Movement 08/23/18 08/25/18 08/26/18 # Bowel Movements 1 0 Narrative: HEENT/Neuro: No pallor or icterus, tongue moist, MARVIN, Awake alert oriented 3 , nonfocal grossly, moving all 4 extremities with good power bilaterally Neck: No JVD Chest/pulmonary: CTA bilaterally Cardiovascular: S1-S2 regular no gallop or murmur GI/abdomen: Soft, nontender, bowel sounds present Extremities: Warm bilaterally, no edema Results 08/26/18 03:15 08/26/18 03:15 Cardiac Enzymes 08/24/18 08/24/18 08/24/18 Range/Units 14:36 14:36 17:00 Troponin I Less than 0.02 L Less than 0.02 L (0.02-0.05) ng/mL B-Natriuretic Peptide 85 (0-100) pg/mL Coagulation 08/24/18 Range/Units 14:36 B-Natriuretic Peptide 85 (0-100) pg/mL CBC 08/25/18 08/26/18 Range/Units 03:35 03:15 WBC 4.8 4.9 (4.0-11.0) th/mm3 RBC 5.17 5.18 (4.50-5.90) mil/mm3 Hgb 14.3 14.4 (13.0-17.0) gm/dL Hct 43.3 43.5 (39.0-51.0) % Plt Count 166 166 (150-450) th/mm3 Neut # (Auto) 2.6 3.2 (1.8-7.7) th/mm3 Lymph # (Auto) 1.4 1.0 (1.0-4.8) th/mm3 [place] # (Auto) 0.6 0.6 (0.0-0.9) th/mm3 Eos # (Auto) 0.1 0.1 (0.0-0.4) th/mm3 Baso # (Auto) 0.0 0.0 (0.0-0.2) th/mm3 Comprehensive Metabolic Panel 08/25/18 08/26/18 Range/Units 03:35 03:15 Sodium 143 143 (136-145) meq/L Potassium 3.3 L 3.3 L (3.5-5.1) meq/L Chloride 103 103 (98-107) meq/L Carbon Dioxide 35.1 H 34.4 H (21.0-32.0) meq/L BUN 15 17 (7-18) mg/dL Creatinine 1.42 H 1.34 H (0.60-1.30) mg/dL Calcium 7.8 L D 8.1 L (8.5-10.1) mg/dL Intake and Output 08/26/18 08/26/18 08/26/18 06:59 14:59 22:59 Intake Total 480 / 480 Output Total 1260 / 1260 Balance -780 / -780 Intake: Oral 480 / 480 Output: Urine 1260 / 1260 Other: Date of Last Bowel Movement 08/25/18 08/26/18 # Bowel Movements 0 Weight 95.9 kg - Imaging and Cardiology Imaging: Impressions Head CT 08/24/18 17:37 CONCLUSION: 1. No acute intracranial abnormality. . Head MRA 08/25/18 00:00 CONCLUSION: 1. Unremarkable MRA of the brain. Neck MRA 08/25/18 00:00 CONCLUSION: 1. Unremarkable MRA of the carotids. Percent stenosis is calculated using the diameter of the stenotic region over the diameter of the normal distal internal carotid artery Head MRI 08/25/18 07:00 CONCLUSION: 1. Unremarkable MRI of the brain for patient's age. 2. Chronic left maxillary sinus disease. Assessment and Plan - Assessment (1) Syncope Code(s): R55 - Syncope and collapse Status: Acute (2) HTN (hypertension) Code(s): I10 - Essential (primary) hypertension Status: Acute (3) Hypoxia Code(s): R09.02 - Hypoxemia Status: Acute (4) Weakness Code(s): R53.1 - Weakness Status: Acute - Plan 1) HTN Labile 2) Syncope Unsure of cause Possible hypotension after receiving Clonidine 3) EF 50-55% 4) No further work up If further events, would consider loop recorder placement
[2018-08-26 23:11] VITALS: TEMP 98.6
[2018-08-27] MEDS: Levothyroxine 150 MCG Tablet PO SCH (05:32)
[2018-08-27 07:18] LABS: Calcium 8.2 mg/dL (8.5-10.1); Carbon Dioxide 33.5 meq/L (21.0-32.0); Potassium 3.7 meq/L (3.5-5.1)
--- NOTE | 2018-08-27 07:54 | P.PN ---
Subjective Interval history: F/U HTN. BP sl low yesterday after Norvasc and Losartan. No complaints. Physical Exam Vital signs: Vital Signs 08/26/18 08:00 08/26/18 08:38 08/26/18 09:00 Temperature 98.4 F Pulse Rate 76 78 76 Respiratory Rate Blood Pressure 150/77 H 150/77 H Pulse Oximetry 95 95 08/26/18 09:03 08/26/18 09:04 08/26/18 10:00 Temperature Pulse Rate 100 H 93 H Respiratory Rate Blood Pressure 173/79 H Pulse Oximetry 84 L 08/26/18 11:00 08/26/18 12:00 08/26/18 12:21 Temperature 98.6 F Pulse Rate 80 77 75 Respiratory Rate Blood Pressure 90/54 L Pulse Oximetry 96 95 96 08/26/18 13:00 08/26/18 14:00 08/26/18 14:14 Temperature Pulse Rate 76 73 75 Respiratory Rate Blood Pressure 142/71 H Pulse Oximetry 94 L 93 L 93 L 08/26/18 15:00 08/26/18 16:00 08/26/18 16:06 Temperature Pulse Rate 84 73 75 Respiratory Rate Blood Pressure 113/65 113/65 Pulse Oximetry 95 94 L 96 08/26/18 17:00 08/26/18 18:00 08/26/18 19:00 Temperature Pulse Rate 77 82 82 Respiratory Rate 16 Blood Pressure Pulse Oximetry 95 95 94 L 08/26/18 19:24 08/26/18 20:00 08/26/18 21:00 Temperature 98.2 F Pulse Rate 91 H 82 84 Respiratory Rate 18 Blood Pressure 164/82 H Pulse Oximetry 94 L 95 94 L 08/26/18 21:45 08/26/18 22:00 08/26/18 22:57 Temperature Pulse Rate 78 89 Respiratory Rate 18 Blood Pressure 187/94 H Pulse Oximetry 94 L 95 95 08/26/18 22:59 08/26/18 23:00 08/27/18 00:00 Temperature 98.6 F Pulse Rate 89 91 H 76 Respiratory Rate 18 16 Blood Pressure 158/77 H Pulse Oximetry 95 95 98 08/27/18 01:00 08/27/18 02:00 08/27/18 02:59 Temperature Pulse Rate 70 70 81 Respiratory Rate 16 14 16 Blood Pressure 125/69 135/87 Pulse Oximetry 98 98 96 08/27/18 03:00 08/27/18 04:00 08/27/18 04:59 Temperature 98.6 F Pulse Rate 81 73 71 Respiratory Rate 14 15 Blood Pressure 149/71 H 145/69 H Pulse Oximetry 96 97 97 08/27/18 05:00 08/27/18 06:00 08/27/18 07:00 Temperature Pulse Rate 70 87 93 H Respiratory Rate 16 16 Blood Pressure 124/64 Pulse Oximetry 97 96 97 Intake & Output 08/26/18 08/27/18 08/27/18 18:59 06:59 18:59 Intake Total 1999 240 / 240 Output Total 1400 / 1400 Balance 1999 -1160 / -1160 Weight 98.4 kg Intake: Oral 1999 240 / 240 Output: Urine 1400 / 1400 Other: # Voids 4 Date of Last Bowel Movement 08/26/18 08/26/18 Narrative: HEENT/Neuro: No pallor or icterus, tongue moist, MARVIN, Awake alert oriented 3 , nonfocal grossly, moving all 4 extremities with good power bilaterally Neck: No JVD Chest/pulmonary: CTA bilaterally Cardiovascular: S1-S2 regular no gallop or murmur GI/abdomen: Soft, nontender, bowel sounds present Extremities: Warm bilaterally, no edema Results - Labs CBC & Chem 7: 08/26/18 03:15 08/27/18 05:34 Laboratory Results - last 24 hr 08/26/18 08/26/18 08/26/18 08:35 12:04 17:20 Sodium Potassium Chloride Carbon Dioxide Anion Gap BUN Creatinine Estimated GFR POC Glucose 82 121 H 89 Random Glucose Calcium 08/26/18 08/27/18 19:55 05:34 Sodium 144 Potassium 3.7 Chloride 107 Carbon Dioxide 33.5 H Anion Gap 4 L BUN 20 H Creatinine 1.58 H Estimated GFR 53 L POC Glucose 123 H Random Glucose 84 Calcium 8.2 L Microbiology 08/24/18 10:30 Blood - Peripheral Aerobic Blood Culture - Preliminary No growth in 2 days 08/24/18 10:30 Blood - Peripheral Anaerobic Blood Culture - Preliminary No growth in 2 days 08/24/18 10:45 Blood - Peripheral Aerobic Blood Culture - Preliminary No growth in 2 days 08/24/18 10:45 Blood - Peripheral Anaerobic Blood Culture - Preliminary No growth in 2 days - Imaging ITS Impressions Chest X-Ray 08/24/18 10:31 CONCLUSION: No focal or acute pulmonary infiltrates. No significant changes compared to the prior study. Chest CTA 08/24/18 12:21 CONCLUSION: 1. No evidence of pulmonary embolism. 2. Scattered posterior bibasilar atelectasis and/or minimal infiltrates. 3. Tiny pericardial effusion. 4. Cardiomegaly and coronary artery calcifications. 5. Scattered low-density lesions are noted throughout the liver which are indeterminate but can be further evaluated with outpatient imaging on a nonemergent basis if requested. 6. Degenerative changes and scoliosis of the thoracic spine are noted. Head CT 08/24/18 17:37 CONCLUSION: 1. No acute intracranial abnormality. . Head MRA 08/25/18 00:00 CONCLUSION: 1. Unremarkable MRA of the brain. Neck MRA 08/25/18 00:00 CONCLUSION: 1. Unremarkable MRA of the carotids. Percent stenosis is calculated using the diameter of the stenotic region over the diameter of the normal distal internal carotid artery Head MRI 08/25/18 07:00 CONCLUSION: 1. Unremarkable MRI of the brain for patient's age. 2. Chronic left maxillary sinus disease. - Procedures None Assessment and Plan - Assessment (1) Hypoxia Code(s): R09.02 - Hypoxemia Status: Acute (2) Weakness Code(s): R53.1 - Weakness Status: Acute - Plan 73 year old male with DM, HTN, history of thyroid cancer s/p ablation, and HLD presenting with weakness found to have mild hypoxia. 1. Syncope with transient hypotension and hypoxia. Could have been related to clonidine which he received prior to episode. At this time etiology not clear however patient has been stable ambulated in the hallway with physical therapy - O2 sat 90% on room air - Pt not an active smoker (quit >20 years ago) and has no h/o respiratory disease - Exam with no wheezing or crackles - CXR with normal cardiac contour and clear lung [place], personally reviewed - CBC with Hb 15.0 which may be compensatory if chronically hypoxic - EKG showing 1st degree AV block - Because he has coronary risk factors (DM, HTN, HLD, and history of tobacco), will rule out with serial enzymes and EKGs. Patient ruled out for [place] - Unremarkable echo cardia - CTA chest no evidence of pulmonary embolism but has atelectasis, tiny pericardial effusion, cardiomegaly, coronary artery calcifications and low- density lesions throughout the liver(aware to follow o/p) - Head CT and brain MRI without acute findings - Neuro checks, seizure precautions follow-up EEG unremarkable. Cardiology and neurology consulted - Passed Respiratory walk test. Consider pulmonary function tests and pulmonary consultation if persistent hypoxia - May benefit from outpatient sleep study - loop recorder if recurrent sxs 2. 1st degree AV block - Stable - Monitor on telemetry 3. Weakness - Pt with multiple comorbidities and on several antihypertensives that can cause weakness/fatigue - Therapeutic TSH - Potassium mildly low, on supplementation - Consult PT to eval and treat recommends no home care 4. Dizziness - Does not sound like vertigo since no sensation of room spinning and not positional - Clinically sounds more like orthostatics given he has symptoms when he rises - Negative orthostatic vital signs 5. Hypokalemia - Potassium mildly low at 3.4. Check magnesium 2.1 - Continue home supplementation, increase to 30 mEq p.o. 3 times a day - Monitor 6. DM - Hold home glipizide - SSI with Accu-Cheks per protocol 7. HTN. Improved - restart metoprolol at a lower dose and monitor - Continue home Losartan , Norvasc(stagger) and discontinue clonidine which he takes at home as needed - Hydralazine PRN 8. HLD - Continue home statin 9. CKD, stage 3a - At baseline - Follows with nephrology as outpatient - Avoid nephrotoxins - Monitor renal function 10. Hypothyroidism, post-ablation - Continue home levothyroxine DVT prophylaxis: heparin Discharge Planning: Stable for discharge
[2018-08-27] MEDS ORDERED: amLODIPine 10 MG Tablet PO SCH (08:00)
[2018-08-27] MEDS: Senna/Docusate Sodium 8.6/50 MG Tablet PO SCH (08:18)
[2018-08-27] MEDS: Heparin - SQ 10,000 UNITS/ML Vial SQ SCH (08:18)
[2018-08-27] MEDS: Insulin NovoLOG Aspart Correctional Sugar Inj SQ SCH ×2 (08:43→12:31)
[2018-08-27 08:50] VITALS: RESP 20; O2SAT 98
[2018-08-27 09:44] VITALS: PULSE 90
[2018-08-27 10:51] VITALS: BP 136/78
--- NOTE | 2018-08-27 12:37 | P.DS ---
Date of admission: 08/25/18 11:26 Primary care physician: Jesus Jolly MD Anticipated date of discharge: 08/27/18 Brief History from admission: 73 year old AA male with history of DM, HTN, HLD, HLD, and BPH presenting to the ER for evaluation of weakness and dizziness starting this morning. He reports when he got out of bed he felt very weak but was able to ambulate. He states his arms and legs felt like there was "no circulation" and finds it somewhat hard to describe. He denies paresthesias, unilateral weakness, falls, gait instability, slurred speech, or altered mental status. He describes his dizziness as more of being "weak and lightheaded." He denies sensation of the room spinning. He denies passing out, chest pain, shortness of breath, palpitations, diaphoresis, nausea, or vomiting. He denies recent illness, fever , chills, abdominal pain, dysuria, lower extremity edema, headache, or visual changes. He states at baseline he doesn't have a lot of energy to begin with but he makes himself go on walks at least three times a week. He states that oftentimes when he gets up from laying or sitting down he has to wait a little bit before ambulating because he feels lightheaded and dizzy. His PCP is Dr. Morillo. He also follows with Dr. Arenas for his CKD. Regarding his O2 sat of 90 % on room air, he denies tobacco use for at least 20 years. He denies cough, shortness of breath, or wheezing. His states he doesn't snore or wake up gasping for air. He endorses daytime fatigue but denies headaches. 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 1. Syncope with transient hypotension and hypoxia. Could have been related to clonidine which he received prior to episode. At this time etiology not clear however patient has been stable ambulated in the hallway with physical therapy - O2 sat 90% on room air - Pt not an active smoker (quit >20 years ago) and has no h/o respiratory disease - Exam with no wheezing or crackles - CXR with normal cardiac contour and clear lung puente, personally reviewed - CBC with Hb 15.0 which may be compensatory if chronically hypoxic - EKG showing 1st degree AV block - Because he has coronary risk factors (DM, HTN, HLD, and history of tobacco), will rule out with serial enzymes and EKGs. Patient ruled out for DE - Unremarkable echo cardia - CTA chest no evidence of pulmonary embolism but has atelectasis, tiny pericardial effusion, cardiomegaly, coronary artery calcifications and low- density lesions throughout the liver(aware to follow o/p) - Head CT and brain MRI without acute findings - Neuro checks, seizure precautions follow-up EEG unremarkable. Cardiology and neurology consulted - Passed Respiratory walk test. Consider pulmonary function tests and pulmonary consultation if persistent hypoxia - May benefit from outpatient sleep study - loop recorder if recurrent sxs 2. 1st degree AV block - Stable - Monitor on telemetry 3. Weakness - Pt with multiple comorbidities and on several antihypertensives that can cause weakness/fatigue - Therapeutic TSH - Potassium mildly low, on supplementation - Consult PT to eval and treat recommends no home care 4. Dizziness - Does not sound like vertigo since no sensation of room spinning and not positional - Clinically sounds more like orthostatics given he has symptoms when he rises - Negative orthostatic vital signs 5. Hypokalemia - Potassium mildly low at 3.4. Check magnesium 2.1 - Continue home supplementation, increase to 30 mEq p.o. 3 times a day - Monitor 6. DM - Hold home glipizide - SSI with Accu-Cheks per protocol 7. HTN. Improved - restart metoprolol at a lower dose and monitor - Continue home Losartan , Norvasc(stagger) and discontinue clonidine which he takes at home as needed - Hydralazine PRN 8. HLD - Continue home statin 9. CKD, stage 3a - At baseline - Follows with nephrology as outpatient - Avoid nephrotoxins - Monitor renal function 10. Hypothyroidism, post-ablation - Continue home levothyroxine DVT prophylaxis: heparin - Time Spent with Patient Total time spent providing and/or coordinating discharge services: Greater than 30 minutes - Quality: VTE Deep Vein Thrombosis/Pulmonary Embolism Present on Admission: No Exam Vital signs: Vital Signs 08/26/18 13:00 08/26/18 14:00 08/26/18 14:14 Temperature Pulse Rate 76 73 75 Respiratory Rate Blood Pressure 142/71 H Pulse Oximetry 94 L 93 L 93 L 08/26/18 15:00 08/26/18 16:00 08/26/18 16:06 Temperature Pulse Rate 84 73 75 Respiratory Rate Blood Pressure 113/65 113/65 Pulse Oximetry 95 94 L 96 08/26/18 17:00 08/26/18 18:00 08/26/18 19:00 Temperature Pulse Rate 77 82 82 Respiratory Rate 16 Blood Pressure Pulse Oximetry 95 95 94 L 08/26/18 19:24 08/26/18 20:00 08/26/18 21:00 Temperature 98.2 F Pulse Rate 91 H 82 84 Respiratory Rate 18 Blood Pressure 164/82 H Pulse Oximetry 94 L 95 94 L 08/26/18 21:45 08/26/18 22:00 08/26/18 22:57 Temperature Pulse Rate 78 89 Respiratory Rate 18 Blood Pressure 187/94 H Pulse Oximetry 94 L 95 95 08/26/18 22:59 08/26/18 23:00 08/27/18 00:00 Temperature 98.6 F Pulse Rate 89 91 H 76 Respiratory Rate 18 16 Blood Pressure 158/77 H Pulse Oximetry 95 95 98 08/27/18 01:00 08/27/18 02:00 08/27/18 02:59 Temperature Pulse Rate 70 70 81 Respiratory Rate 16 14 16 Blood Pressure 125/69 135/87 Pulse Oximetry 98 98 96 08/27/18 03:00 08/27/18 04:00 08/27/18 04:59 Temperature 98.6 F Pulse Rate 81 73 71 Respiratory Rate 14 15 Blood Pressure 149/71 H 145/69 H Pulse Oximetry 96 97 97 08/27/18 05:00 08/27/18 06:00 08/27/18 07:00 Temperature Pulse Rate 70 87 93 H Respiratory Rate 16 16 Blood Pressure 124/64 Pulse Oximetry 97 96 97 08/27/18 08:00 08/27/18 08:50 08/27/18 09:44 Temperature 98.6 F Pulse Rate 86 96 H 90 Respiratory Rate 20 Blood Pressure 178/89 H 170/87 H Pulse Oximetry 98 08/27/18 10:00 Temperature Pulse Rate Respiratory Rate Blood Pressure 136/78 Pulse Oximetry Intake & Output 08/26/18 08/27/18 08/27/18 18:59 06:59 18:59 Intake Total 1999 240 / 240 Output Total 1400 / 1400 Balance 1999 -1160 / -1160 Weight 98.4 kg Intake: Oral 1999 240 / 240 Output: Urine 1400 / 1400 Other: # Voids 4 Date of Last Bowel Movement 08/26/18 08/26/18 Narrative: HEENT/Neuro: No pallor or icterus, tongue moist, MARVIN, Awake alert oriented 3 , nonfocal grossly, moving all 4 extremities with good power bilaterally Neck: No JVD Chest/pulmonary: CTA bilaterally Cardiovascular: S1-S2 regular no gallop or murmur GI/abdomen: Soft, nontender, bowel sounds present Extremities: Warm bilaterally, no edema Results Procedures completed during hospitalization: None Labs on day of discharge: Labs from last 24 hours 08/27/18 08/27/18 08/27/18 12:05 08:41 05:34 Sodium 144 Potassium 3.7 Chloride 107 Carbon Dioxide 33.5 H Anion Gap 4 L BUN 20 H Creatinine 1.58 H Estimated GFR 53 L POC Glucose 118 H 85 Random Glucose 84 Calcium 8.2 L 08/26/18 08/26/18 19:55 17:20 Sodium Potassium Chloride Carbon Dioxide Anion Gap BUN Creatinine Estimated GFR POC Glucose 123 H 89 Random Glucose Calcium Preliminary micro results at discharge 08/24/18 10:30 Aerobic Blood Culture - Preliminary Blood - Peripheral No growth in 3 days Anaerobic Blood Culture - Preliminary No growth in 3 days 08/24/18 10:45 Aerobic Blood Culture - Preliminary Blood - Peripheral No growth in 3 days Anaerobic Blood Culture - Preliminary No growth in 3 days - Impressions ITS Impressions Chest X-Ray 08/24/18 10:31 CONCLUSION: No focal or acute pulmonary infiltrates. No significant changes compared to the prior study. Chest CTA 08/24/18 12:21 CONCLUSION: 1. No evidence of pulmonary embolism. 2. Scattered posterior bibasilar atelectasis and/or minimal infiltrates. 3. Tiny pericardial effusion. 4. Cardiomegaly and coronary artery calcifications. 5. Scattered low-density lesions are noted throughout the liver which are indeterminate but can be further evaluated with outpatient imaging on a nonemergent basis if requested. 6. Degenerative changes and scoliosis of the thoracic spine are noted. Head CT 08/24/18 17:37 CONCLUSION: 1. No acute intracranial abnormality. . Head MRA 08/25/18 00:00 CONCLUSION: 1. Unremarkable MRA of the brain. Neck MRA 08/25/18 00:00 CONCLUSION: 1. Unremarkable MRA of the carotids. Percent stenosis is calculated using the diameter of the stenotic region over the diameter of the normal distal internal carotid artery Head MRI 08/25/18 07:00 CONCLUSION: 1. Unremarkable MRI of the brain for patient's age. 2. Chronic left maxillary sinus disease. Discharge Plan - Discharge Disposition Patient Disposition: 01 Discharge Home - Discharge Condition Condition: Stable - Discharge Order Discharge Orders: Discharge Order (Routine); Ordered 08/27/18 Ordered By: Darío Weaver - Discharge Details Discharge Comment: dc after I see pt - Physicians Team Primary Care Provider: Jesus Jolly Attending Provider: Darío Weaver Other Providers: Raymond Sánchez MD ; Dony Gurrola DO ; Bella Auguste MD ; Disha Gauthier
== END 2018-08-27 12:55 | disposition home or self-care (01) ==
LOC: NEDA 10:02 → NEPE 10:02 → NEPGCP 13:44 → N03 18:05
PROVIDERS: ADMIT Internal Medicine; ATTEND Internal Medicine